=== PATIENT | female | born 1950 | race Caucasian/White ===

== ENCOUNTER → 2017-01-17 | Outpatient (CLI) | payer MEDICARE ==
--- NOTE | 2017-01-17 10:59 | MM ---
Reason for exam: follow-up at short interval from prior study. Last mammogram was performed 7 months ago. History: Patient is postmenopausal. Family history of breast cancer in maternal grandmother at age 94. Reductions of both breasts, 2010. Excisional biopsy of the left breast. Physical Findings: Nurse did not find any significant physical abnormalities on exam. MG 3D Diag Mammo W/Cad LT CC and MLO view(s) were taken of the left breast. Prior study comparison: June 28, 2016, left breast MG 3d work up w/cad LT. June 26, 2016, bilateral MG 3d screening mammo w/cad. There are scattered fibroglandular densities. There is chronic nodularity in the left breast. No significant new findings when compared with previous films. These results were verbally communicated with the patient and result sheet given to the patient on 01/17/17. ASSESSMENT: Benign, BI-RAD 2 RECOMMENDATION: Routine screening mammogram of both breasts in 6 months. Back on schedule.
== END | disposition home or self-care (01) ==
LOC: RADMAMWWP 10:12
PROVIDERS: ATTEND Family Medicine
DX: R92.8 Other abnormal and inconclusive findings on diagnostic imaging of breast (principal)
CPT/HCPCS: G0206; G0279

== ENCOUNTER → 2017-05-07 | Outpatient (CLI) | payer MEDICARE ==
--- NOTE | 2017-05-07 11:16 | P.PN ---
Progress Note - Text Progress Note Date: 05/07/17 Chief complaint: pain and vaginal dryness with intercourse. HPI: this is a 67-year-old G3 PIII with LMP of 2003. She states she is infrequently sexually active. She had sexual intercourse once during the past year and when she did have intercourse it was very painful secondary to a vaginal dryness. She did use a lubricant but states it felt like the vagina was going to tear with sexual intercourse. She does have a history of lichen sclerosis of the vulva. She states she has not really been using the prescribed cream because it can sting the area. She states the problem is not really been with the vulva, but with the vagina during intercourse. ROS: she denies respiratory, cardiac, or G.I. problems. She denies fever or bleeding from the vagina. Physical exam: vital signs: blood pressure 163/95, height 5'4", weight 146 pounds, BMI 25, intention 97.6, pulse 59. The patient is alert and oriented times 3 in no acute distress. Abdomen: soft nontender without palpable masses. Pelvic exam: external genitalia reveals generalized vulvar pallor consistent with lichen sclerosis. This was confirmed with vulvar biopsy last year. There are no focal lesions. The cevix and vagina reveal moderate atrophy without lesions. There is no unusual discharge. No tears are noted. There is no evidence of prolapse. Bimanual exam: uterus is atrophic nongravid size and nontender. Uterus is mid positioned. There are no palpable adnexal masses or tenderness. Impression: 1. 67-year-old menopausal female with dyspareunia secondary to vaginal atrophy. 2. Lichen sclerosis of the Vulva. Plan: 1. Trial of Estrace vaginal cream, 1 g intravaginal he 2 times weekly. During the 1st 2 weeks she will use it up to every other day. 2. She was instructed, she has problems such as vaginal bleeding. 3. She will return in approximately 2 months for her annual examination and mammogram. Total time spent with the patient 15 minutes.
== END ==
LOC: WWCWWP 09:55
PROVIDERS: ATTEND Obstetrics & Gynecology
DX: N94.19 Other specified dyspareunia (principal); N95.2 Postmenopausal atrophic vaginitis; N90.4 Leukoplakia of vulva

== ENCOUNTER → 2017-07-08 | Outpatient (CLI) | payer MEDICARE ==
--- NOTE | 2017-07-08 21:39 | WWHP ---
[facility] - HISTORY AND PHYSICAL CHIEF COMPLAINT: The patient is here for her routine gynecologic exam and mammogram. HISTORY OF PRESENT ILLNESS: This is a 67-year-old G3, P3 with an LMP of 2003. The patient has a history of lichen sclerosus. She was also started on Estrace vaginal cream for vaginal dryness and dyspareunia with intercourse. She states the itching and irritation at the vulva and just inside of the vulvar area has gotten much worse recently. She states the estrogen vaginal cream was also irritating the outside, so she has discontinued this about a week ago. She denies any postmenopausal bleeding. She states she still has been experiencing vaginal dryness with intercourse, even after starting the estrogen vaginal cream. PAST MEDICAL HISTORY: Chronic hypertension, arthritis, chronic back problems, history of peptic ulcer disease and history of vocal cord granuloma. MEDICATIONS: 1. Synthroid 100 mcg daily. 2. Meloxicam 15 mg daily. 3. Irbesartan 300 mg daily. 4. Badin t.i.d. p.r.n. MMODL / MALINDAN: [id number] /
--- NOTE | 2017-07-08 21:39 | WWHP ---
[facility] - HISTORY AND PHYSICAL CHIEF COMPLAINT: The patient is here for her routine gynecologic exam and mammogram. HISTORY OF PRESENT ILLNESS: This is a 67-year-old G3, P3 with an LMP of 2003. The patient has a history of lichen sclerosus. She states the vulvar pruritus has gotten much worse over the last couple of weeks and has been severe. She had been using estrogen vaginal cream for vaginal dryness and dyspareunia. She states the estrogen cream was irritating the vulva, so she discontinued this 1 week ago. She denies postmenopausal bleeding. PAST MEDICAL HISTORY: Chronic hypertension, arthritis, chronic back problems, history of peptic ulcer disease and history of vocal cord granuloma. MEDICATIONS: 1. Synthroid 100 mcg daily. 2. Meloxicam 15 mg daily. 3. Irbesartan 300 mg daily. 4. [place] t.i.d. p.r.n. 5. Omeprazole 40 mg daily. 6. Zyrtec 10 mg daily. 7. Trazodone 50 mg at bedtime p.r.n. for insomnia. 8. Calcium 500 mg daily. 9. Vitamin D 1000 units daily. ALLERGIES: To PENICILLIN, SULFA, and KEFLEX. PAST SURGICAL HISTORY: Unchanged from the 2014 H and P. PAST BUYER HISTORY: She has been menopausal since 2003 and has no history of STDs. She does have a history of lichen sclerosus documented with vulvar biopsy. SOCIAL HISTORY: She denies tobacco and drug use and has about 2 alcohol-containing drinks per month. She has been since 1970 and is retired. She does winter in [place]. FAMILY HISTORY: Unchanged from the 2013 H and P. REVIEW OF SYSTEMS: She has lost about 30 pounds with [employer]. She denies respiratory, cardiac or GI problems. She denies maltreatment or falling. : She occasionally has some urinary frequency, but denies any significant problems with urinary leakage. PHYSICAL EXAM: Blood pressure 142/91, height 5 feet 4 inches, weight 146 pounds, BMI 25. Temperature 97.6, pulse 70. This is a well-developed, well-nourished white female who is alert and oriented x3, in no acute distress. HEENT: Within normal limits. NECK: Supple without mass or thyromegaly. CHEST AND LUNGS: Clear to auscultation. HEART: Regular rate and rhythm. Breasts are without mass or discharge. Axillary is negative for adenopathy. BACK: Negative for CVA tenderness. ABDOMEN: Soft, nontender, without palpable masses. PELVIC: External genitalia reveals moderate erythema around the vulva, perineum and perianal areas. There is also pallor consistent with lichen sclerosus. There are no focal lesions. There is no excoriation of the vulva. Vagina reveals moderate atrophy. Cervix appears normal. There is no unusual discharge. There is no evidence of prolapse. The uterus is mid position, nongravid size, nontender. There are no palpable adnexal masses or tenderness. Rectovaginal is negative for mass or tenderness and is negative for occult blood. EXTREMITIES: Nontender. IMPRESSION: 1. A 67-year-old menopausal female with worsening of lichen sclerosus. 2. Moderate genital atrophy with resulting dyspareunia. PLAN: 1. Pap smear was performed. 2. Self-breast examination was discussed. 3. Mammogram will be done today. 4. Temovate 0.05% ointment b.i.d. x2 weeks. She will then change to Kenalog 0.1% cream b.i.d. p.r.n. She will be heading to [place] within the next few days and she will be there for 4 months. She will follow up with a three dimensional art instructor down there if her symptoms are not improving. 5. Osteoporosis prevention was discussed. I have recommended bone density screening and a slip was given to the patient for this. 6. She did get her flu shot this fall. 7. Screening colonoscopy was recommended and she states she will talk to Dr. Archibald about this and arrange it through him. 8. She will return in 1 year and p.r.n. MMODL / IJN: [id number] /
--- NOTE | 2017-07-10 13:57 | MM ---
Reason for exam: screening (asymptomatic). Last mammogram was performed 6 months ago. History: Patient is postmenopausal. Family history of breast cancer in maternal grandmother at age 94. Reductions of both breasts, 2010. Excisional biopsy of the left breast. Physical Findings: A clinical breast exam by your physician is recommended on an annual basis and results should be correlated with mammographic findings. MG 3D Screening Mammo W/Cad Bilateral CC and MLO view(s) were taken. Prior study comparison: January 17, 2017, left breast MG 3d diag mammo w/cad LT. June 28, 2016, left breast MG 3d work up w/cad LT. June 26, 2016, bilateral MG 3d screening mammo w/cad. There are scattered fibroglandular densities. No suspicious abnormality. No significant changes when compared with prior studies. ASSESSMENT: Negative, BI-RAD 1 RECOMMENDATION: Routine screening mammogram of both breasts in 1 year.
== END | disposition home or self-care (01) ==
LOC: WWCWWP 11:16
PROVIDERS: ATTEND Obstetrics & Gynecology
DX: Z12.31 Encounter for screening mammogram for malignant neoplasm of breast (principal)
CPT/HCPCS: 77063; G0202

== ENCOUNTER → 2017-12-22 | Outpatient (CLI) | payer MEDICARE ==
--- NOTE | 2017-12-22 15:11 | CT ---
EXAMINATION TYPE: CT lumbar spine wo con DATE OF EXAM: 12/22/2017 2:39 PM COMPARISON: Lumbar spine x-ray October 23, 2011 HISTORY: Lower back pain. Sx x6 years ago CT DLP: 625.5 mGycm Automated exposure control for dose reduction was used. Unenhanced CT of the lumbar spine was performed. Bone and soft tissue window settings are submitted as well as coronal and sagittal reconstructions. There are 5 lumbar-type vertebra redemonstrated. There is levoconvex scoliosis centered at L2 level t hat remains present. No significant interval progression is seen. There are long segment posterior in terpedicular rods and screws from T11 through S1 level bilaterally. Artificial disc material L2-L3, L 4-L5, and L5-S1 levels is present. Osseous structures are demineralized. There is grade 1 anterolisth esis of L5 on S1 measured 6 mm on sagittal images. There is moderate disc space narrowing L3-L4 level . There is moderate anterior and lateral spurring in the visualized lower thoracic spine. Spinal manpreet l is grossly preserved. Artifact from metallic hardware is present. Review of axial images shows multilevel moderate to advanced facet degenerative changes bilaterally a rtifact from metallic hardware limits evaluation particularly in the lower lumbar spine. Some diverticula in the proximal sigmoid colon are present. There is suspected calcified diverticulum distal esophagus axial image 10. Cholecystectomy clips are noted. IMPRESSION: Suboptimal due to streak artifact from long segment metallic fusion hardware. Stable scol iosis. Spondylolisthesis lumbosacral junction is noted. Other findings as noted above.
== END ==
LOC: RADCTMAIN 14:16
PROVIDERS: ATTEND Psychiatry & Neurology Neurology
DX: M41.9 Scoliosis, unspecified (principal); M43.17 Spondylolisthesis, lumbosacral region; M48.061 Spinal stenosis, lumbar region without neurogenic claudication
CPT/HCPCS: 72131

== ENCOUNTER → 2019-03-18 | Outpatient (CLI) | payer MEDICARE ==
--- NOTE | 2019-03-19 07:40 | BD ---
EXAMINATION TYPE: Axial Bone Density DATE OF EXAM: 03/18/2019 COMPARISON: NONE CLINICAL HISTORY: 69 YR OLD FEMALE....ICD-10 CODE: N95.1 POST MENOPAUSAL Height: 62.4 Weight: 177 FRAX RISK QUESTIONS: NOTHING ADDITIONAL TO ADD HERE RISK FACTORS HISTORY OF: Surgery to Spine..TO SPINE WITH MICHAEL AND SCREWS, SURG TO BOTH WRISTS, Postmenopausal woman: YES, LATE 40s Lost more than 2 inches in height since high school: YES MEDICATIONS: Prednisone or other steroids: YES, IN THE LAST MONTH ONLY Thyroid Medications: YES, SYNTHROID FOR ABOUT 5 YRS Additional Medications: BP MEDS, REFLUX MEDS, VIT D, CALCIUM IN VITAMIN, PAIN MEDS AND NSAIDS Additional History: HYPERTENSION, REFLUX, OSTEOARTHRITIS, BILAT TKRs, BILAT WRIST SURG, BACK SURGERY, SCOLIOSIS EXAM MEASUREMENTS: Bone mineral densitometry was performed using the [employer] System. Bone mineral density as measured about the Lumbar spine is: BACK NOT SCANNED, SURGICAL, WITH MICHAEL AND SCREWS Bone mineral density about the R hip (g/cm2): 0.787 Bone mineral density about the L hip (g/cm2): 0.868 T Score values are as follows: -----R Neck: -2.0 -----L Neck: -1.9 -----R Total: -1.7 -----L Total: -1.1 Bone mineral density FIRST BONE DENSITY STUDY AT [facility] CANNOT USE WRISTS, BILAT SURGICAL REPAIR FRAX%s: THERE IS A 17.2% CHANCE FOR A MAJOR OSTEOPOROTIC FX AND A 3.3% FOR HIP....PROBABILITY FOR FX IN 10 YRS TIME IMPRESSION: Osteopenia (T Score between -2.5 and -1). There is slightly increased risk of fracture and the patient may be considered for treatment. Re-Screen 2-5 years. NOTE: T-SCORE=SD OF THE YOUNG ADULT MEAN.
--- NOTE | 2019-03-22 08:12 | MM ---
Reason for exam: screening (asymptomatic). Last mammogram was performed 1 year and 8 months ago. History: Patient is postmenopausal. Family history of breast cancer in maternal grandmother at age 94. Reductions of both breasts, 2010. Excisional biopsy of the left breast. Physical Findings: A clinical breast exam by your physician is recommended on an annual basis and results should be correlated with mammographic findings. MG 3D Screening Mammo W/Cad Bilateral CC and MLO view(s) were taken. Prior study comparison: July 08, 2017, bilateral MG 3d screening mammo w/cad. January 17, 2017, left breast MG 3d diag mammo w/cad LT. June 28, 2016, left breast MG 3d work up w/cad LT. June 26, 2016, bilateral MG 3d screening mammo w/cad. There are scattered fibroglandular densities. Possible increasingly ectatic ducts 12 o'clock right breast. ASSESSMENT: Incomplete: need additional imaging evaluation, BI-RAD 0 RECOMMENDATION: Ultrasound of the right breast. [facility] will attempt to contact patient to return for ultrasound.
== END | disposition home or self-care (01) ==
LOC: RADMAMWWP 13:53
PROVIDERS: ATTEND Obstetrics & Gynecology
DX: Z12.31 Encounter for screening mammogram for malignant neoplasm of breast (principal); M85.80 Other specified disorders of bone density and structure, unspecified site; N95.1 Menopausal and female climacteric states
CPT/HCPCS: 77063; 77067; 77080

== ENCOUNTER → 2019-04-01 | Outpatient (CLI) | payer MEDICARE ==
--- NOTE | 2019-04-01 11:30 | USB ---
Reason for exam: additional evaluation requested from abnormal screening. History: Patient is postmenopausal. Family history of breast cancer in maternal grandmother at age 94. Reductions of both breasts, 2010. Excisional biopsy of the left breast. Physical Findings: Nurse Summary: all soft, nodular, movable, prominent tissue, bilateral nipples (nurse ts). US Breast Workup Limited RT Right limited breast ultrasound including focal area of concern, retroareolar and axilla demonstrates a 0.3 x 0.2 x 0.2cm calcification at 2 o'clock and duct ectasia at the nipple. These results were verbally communicated with the patient and result sheet given to the patient on 04/01/19. ASSESSMENT: Incomplete: need additional imaging evaluation, BI-RAD 0 RECOMMENDATION: Special view mammogram of the right breast.
--- NOTE | 2019-04-01 11:32 | MM ---
Reason for exam: additional evaluation requested from abnormal screening. Last mammogram was performed less than 1 month ago. History: Patient is postmenopausal. Family history of breast cancer in maternal grandmother at age 94. Reductions of both breasts, 2010. Excisional biopsy of the left breast. MG 3D Work Up W/Cad RT Spot compression CC, spot compression MLO, and ML view(s) were taken of the right breast. Prior study comparison: March 18, 2019, bilateral MG 3d screening mammo w/cad. July 08, 2017, bilateral MG 3d screening mammo w/cad. There are scattered fibroglandular densities. There is no discrete abnormality including area of concern. These results were verbally communicated with the patient and result sheet given to the patient on 04/01/19. ASSESSMENT: Negative, BI-RAD 1 RECOMMENDATION: Return to routine screening mammogram schedule for both breasts.
== END | disposition home or self-care (01) ==
LOC: RADUSWWP 10:15
PROVIDERS: ATTEND Obstetrics & Gynecology
DX: R92.8 Other abnormal and inconclusive findings on diagnostic imaging of breast (principal)
CPT/HCPCS: 77065; 76642; G0279; 77061

== ENCOUNTER → 2020-05-18 | Outpatient (CLI) | payer MEDICARE ==
[2020-05-18 14:39] LABS: Ionized Calcium 5.5 mg/dL (4.5-5.3)
[2020-05-18 20:27] LABS: C Reactive Protein 2.3 mg/dL (0.0-0.8)
== END | disposition home or self-care (01) ==
LOC: LABWHC1 13:43
PROVIDERS: ATTEND Otolaryngology
DX: D86.9 Sarcoidosis, unspecified (principal); R05 Cough; R53.83 Other fatigue
CPT/HCPCS: 36415; 82164; 82306; 82310; 82330; 86140

== ENCOUNTER → 2020-05-25 | Outpatient (CLI) | payer MEDICARE ==
--- NOTE | 2020-05-25 11:59 | CT ---
EXAMINATION TYPE: CT sinus wo con DATE OF EXAM: 05/25/2020 COMPARISON: NONE HISTORY: Chronic sinusitis per order. CT DLP: 550.8 mGycm. Automated Exposure Control for Dose Reduction was Utilized. TECHNIQUE: CT scan of the sinuses is performed without contrast, axial images are obtained, coronal r eformatted images are also reviewed. FINDINGS: The paranasal sinuses including the frontal, ethmoid, sphenoid, and maxillary sinuses bila terally are well-aerated without abnormal opacification. No suspicious air-fluid levels. The ostiome atal complex is patent bilaterally on coronal image 24. Visualized portion of mastoid air cells show no abnormal opacification. The globes are intact bilate rally. Visualized portion of brain parenchyma is unremarkable. IMPRESSION: The sinuses are clear and the ostiomeatal complex is patent bilaterally.
--- NOTE | 2020-05-25 12:01 | XR ---
EXAMINATION TYPE: XR chest 2V DATE OF EXAM: 05/25/2020 COMPARISON: Chest CT January 05, 2016. Chest x-ray 2011 HISTORY: Nasal drainage. Chronic sinusitis. Pain. TECHNIQUE: Frontal and lateral views of the chest are obtained. FINDINGS: Underlying scoliosis redemonstrated. Partial visualization of long segment Lei rods in the lower thoracic and upper lumbar spine. New spinal stimulator device in the mid thoracic spina l canal posteriorly. Osseous structures are demineralized. Cardiac silhouette size stable and within normal limits. Chronic emphysematous and pulmonary fibrotic changes without new suspicious focal airspace opacity, pleural effusion, or pneumothorax seen bilate rally. IMPRESSION: Chronic changes without acute pulmonary process.
== END | disposition home or self-care (01) ==
LOC: RADCTMAIN 11:31
PROVIDERS: ATTEND Otolaryngology
DX: J43.9 Emphysema, unspecified (principal); J32.0 Chronic maxillary sinusitis
CPT/HCPCS: 70486; 71046

== ENCOUNTER → 2020-06-07 | Outpatient (CLI) | payer MEDICARE | END | disposition home or self-care (01) | LOC: LABWHC1 13:59 | PROVIDERS: ATTEND Otolaryngology | DX: E83.52 Hypercalcemia (principal) | CPT/HCPCS: 36415; 82330; 83970 ==

== ENCOUNTER → 2020-07-10 | Outpatient (CLI) | payer MEDICARE ==
--- NOTE | 2020-07-10 18:20 | NM ---
EXAMINATION TYPE: NM parathyroid w/spect DATE OF EXAM: 07/10/2020 COMPARISON: CT neck and chest January 05, 2016 HISTORY: History of parathyroid adenoma with hypercalcemia TECHNIQUE: Following administration of 24.4 mCi Tc99m Sestamibi. Anterior projection images of the neck and ches t were obtained 10 minutes and 3 hours post injection. SPECT images of the neck and chest were obtai camilla and reconstructed in three axes. FINDINGS: Thyroid tracer washout: Delayed images demonstrate near-complete tracer washout from the thyroid. Parathyroid uptake: None. The 3 hour delayed images demonstrate any subtle focal abnormal persistent uptake in the region of the lower pole left thyroid lobe may suggest recurrent parathyroid adenoma. Normal uptake: There is physiological tracer uptake in the visualized portion of myocardium, salivary glands, and thyroid gland with increased radiotracer uptake left thyroid lobe midpole level, no anahi esponding nodule identified.. IMPRESSION: Subtle retained radiotracer lower pole level left thyroid lobe worrisome for recurrent fo ana laura parathyroid adenoma.
== END | disposition home or self-care (01) ==
LOC: RADNMMAIN 11:16
PROVIDERS: ATTEND Otolaryngology
DX: R93.89 Abnormal findings on diagnostic imaging of other specified body structures (principal); D35.1 Benign neoplasm of parathyroid gland
CPT/HCPCS: 78071; A9500

== ENCOUNTER 2020-12-20 20:25 | Emergency (ER) | payer MEDICARE ==
[2020-12-20 20:29] VITALS: BP 193/104; PULSE 107; RESP 18; TEMP 97.6
[2020-12-20] MEDS ORDERED: LIDOCAINE 1% INJ 10MG/ML (20 ML MDV) SQ ONE (20:35)
[2020-12-20] MEDS ORDERED: DIPH,PERTUS(ACELL)TETVAC-LF 0.5 ML VIAL IM ONE (20:35)
--- NOTE | 2020-12-20 21:12 | ED ---
Wound/Laceration HPI - General Chief Complaint: Wound/Laceration Stated Complaint: toe injury Time Seen by Provider: 12/20/20 20:31 Source: patient, RN notes reviewed Mode of arrival: wheelchair Limitations: no limitations - History of Present Illness Initial Comments: Patient is a 70-year-old female that presents to the emergency room with a left pinky toe laceration/skin tear. She notes that she was walking in the [employer] school when she opened the door and hit her pinky toe. She noted that her toe started bleeding. She notes that she does have a history of issues with this pinky toe. She noted that it was not in any pain or discomfort just wanted to get it looked at. She did not know she was up-to-date on her tetanus vaccination. She denied any other complaints or issues at this time. She denied any chest pain first breath headache nausea vomiting diarrhea constipation fever fatigue chills weakness numbness tingling decreased range of motion in her left pinky toe. - Related Data Home Medications Medication Instructions Recorded Confirmed HYDROcodone/APAP 10-325MG [Sylvester 1 each PO BID PRN 01/25/14 01/31/14 10] Lansoprazole [Prevacid] 15 mg PO DAILY 01/25/14 01/31/14 Magnesium Oxide [Mag-Ox] 800 mg PO DAILY 01/25/14 01/31/14 Meloxicam 15 mg PO DAILY 01/25/14 01/31/14 Zolpidem Tartrate [Ambien Cr] 12.5 mg PO HS 01/25/14 01/31/14 amLODIPine BESYLATE/BENAZEPRIL 5 - 20 mg PO DAILY 01/25/14 01/31/14 [Lotrel 5-20 mg Capsule] Previous Rx's Medication Instructions Recorded HYDROcodone/APAP 10-325MG [Sylvester 1 - 2 each PO Q6H PRN #60 tab 02/03/14 10-325] Warfarin [Coumadin] 2.5 mg PO DAILY #1 tab 02/03/14 Allergies Allergy/AdvReac Type Severity Reaction Status Date / Time cephalexin monohydrate Allergy Unknown Verified 12/20/20 20:29 [From Keflex] Childhood Penicillins Allergy Rash/Hives Verified 12/20/20 20:29 Sulfa (Sulfonamide Allergy Unknown Verified 12/20/20 20:29 Antibiotics) Childhood Review of Systems ROS Statement: Those systems with pertinent positive or pertinent negative responses have been documented in the HPI. ROS Other: All systems not noted in ROS Statement are negative. Past Medical History Past Medical History: GERD/Reflux, Hypertension, Osteoarthritis (OA) Additional Past Medical History / Comment(s): Degenerative disc disease History of Any Multi-Drug Resistant Organisms: None Reported Past Surgical History: Adenoidectomy, Appendectomy, Back Surgery, Breast Surgery, Cholecystectomy, Joint Replacement, Orthopedic Surgery, Tonsillectomy Additional Past Surgical History / Comment(s): ARTHROSCOPIC KNEE/TOTAL LEFT KNEE, TOTAL RIGHT KNEE Past Anesthesia/Blood Transfusion Reactions: No Reported Reaction Past Psychological History: No Psychological Hx Reported Smoking Status: Former smoker Past Alcohol Use History: None Reported Past Drug Use History: None Reported General Exam Limitations: no limitations General appearance: alert, in no apparent distress Head exam: Present: atraumatic, normocephalic, normal inspection Eye exam: Present: normal appearance, PERRL, EOMI. Absent: scleral icterus, conjunctival injection, periorbital swelling Neck exam: Present: normal inspection Respiratory exam: Present: normal lung sounds bilaterally. Absent: respiratory distress, wheezes, rales, rhonchi, stridor Cardiovascular Exam: Present: regular rate, normal rhythm, normal heart sounds. Absent: systolic murmur, diastolic murmur, rubs, gallop, clicks Left Foot/Toe exam: Present: full ROM, laceration (To the medial aspect of the left pinky toe). Absent: tenderness, swelling, ecchymosis, deformity, crepitus, dislocation, erythema, foreign body Neurological exam: Present: alert, oriented X3, CN II-XII intact Psychiatric exam: Present: normal affect, normal mood Skin exam: Present: warm, dry, intact, normal color. Absent: rash Course Vital Signs 12/20/20 20:26 Temperature 97.6 F Pulse Rate 107 H Respiratory 18 Rate Blood Pressure 193/104 O2 Sat by Pulse 97 Oximetry Procedures - Laceration Laceration #1 Consent Obtained: verbal consent Indication: laceration Site: foot (Left pinky toe medial aspect) Size (cm): 2 Description: flap Depth: simple, single layer Anesthetic Used: lidocaine 1% Anesthesia Technique: nerve block Amount (mls): 4 Pre-repair: irrigated extensively Type of Sutures: nylon Size of Sutures: 5-0 Number of Sutures: 3 Technique: simple, interrupted Patient Tolerated Procedure: well, no complications Medical Decision Making - Medical Decision Making 70-year-old female with left pinky toe laceration from [facility] Tetanus vaccination, he can ordered. Case discussed with Dr. Lazo, patient can discharge home with follow-up to primary care. Disposition Clinical Impression: Laceration Disposition: HOME SELF-CARE Condition: Stable Instructions (If sedation given, give patient instructions): Care For Your Stitches (ED), Laceration (ED) Additional Instructions: Please return to the Emergency Department if symptoms worsen or any other concerns. Follow-up with primary care as needed. Please return in 10 days to have sutures removed. Can wash with warm water gentle soap, keep clean and dry as possible. Please return if any signs or symptoms of infection occur such as erythema, pus, warmth to the little toe. Is patient prescribed a controlled substance at d/c from ED?: No Referrals: Gregory Huerta MD [Primary Care Provider] - 1-2 days Time of Disposition: 21:12
== END 2020-12-20 21:33 | disposition home or self-care (01) ==
LOC: EC 20:25
DX: S91.115A Laceration without foreign body of left lesser toe(s) without damage to nail, initial encounter (principal); I10 Essential (primary) hypertension; K21.9 Gastro-esophageal reflux disease without esophagitis; M19.90 Unspecified osteoarthritis, unspecified site; Z90.89 Acquired absence of other organs; Z90.09 Acquired absence of other part of head and neck; W22.09XA Striking against other stationary object, initial encounter; Z87.891 Personal history of nicotine dependence; Z23 Encounter for immunization
CPT/HCPCS: 90715; 12001; 99282; 96372; 90471; J2001

== ENCOUNTER → 2020-12-22 | Outpatient (CLI) | payer MEDICARE ==
--- NOTE | 2020-12-22 20:19 | BD ---
EXAMINATION TYPE: Axial Bone Density DATE OF EXAM: 12/22/2020 COMPARISON: 03.18.2019 CLINICAL HISTORY: 70 YR OLD FEMALE.....ICD-10 CODE: D35.1 BENIGN NEOPLASM OF PARATHYROID Height: 62.4 Weight: 189 FRAX RISK QUESTIONS: History of Fracture in Adulthood: YES RISK FACTORS HISTORY OF: History of Wrist SURG TO BOTH WRISTS Surgery to Spine YES, WITH RODS AND SCREWS WELL BOTH WRISTS Postmenopausal woman: YES, IN HER LATE 40s Lost more than 2 inches in height since high school: YES Hyperparathyroidism: YES Adrenal Insufficiency: NO MEDICATIONS: Prednisone or other steroids: NOT REGULARLY, Thyroid Medications: YES, SYNTHROID, FOR ABOUT 10 YRS Additional Medications: BP MEDS, METFORMIN, REFLUX, VIT D, MULTIVITAMIN Additional History: NEOPLASM TO PARATHYROID GLAND, HYPERTENSION, DIABETES, REFLUX EXAM MEASUREMENTS: Bone mineral densitometry was performed using the Behalf System. DID NOT SCAN SPINE, SURGICAL REPAIR WITH HARDWARE Bone mineral density about the R hip (g/cm2): 0.782 Bone mineral density about the L hip (g/cm2): 0.872 T Score values are as follows: -----R Neck: -2.2 -----L Neck: -2.2 -----R Total: -1.8 -----L Total: -1.1 Bone mineral density has: Decreased -0.1% since study of: 03.18.2019 FRAX%s: THERE IS A 18.8% CHANCE FOR A MAJOR OSTEOPOROTIC FX AND A 3.8% FOR HIP......PROBABILITY FO R FX IN 10 YRS TIME IMPRESSION: Osteopenia (T Score between -2.5 and -1). There is slightly increased risk of fracture and the patient may be considered for treatment. Re-Screen 2-5 years. NOTE: T-SCORE=SD OF THE YOUNG ADULT MEAN.
== END | disposition home or self-care (01) ==
LOC: RADBDWWP 09:12
PROVIDERS: ATTEND Otolaryngology
DX: M85.89 Other specified disorders of bone density and structure, multiple sites (principal)
CPT/HCPCS: 77080

== ENCOUNTER 2021-01-07 10:44 | Emergency (ER) | payer MEDICARE ==
[2021-01-07 10:53] VITALS: RESP 18
[2021-01-07 11:57] LABS: Basophils % (A) 0 %; Eosinophils # (A) 0.1 k/uL (0-0.7); Eosinophils % (A) 1 %; HCT 42.7 % (34.0-46.0); HGB 13.9 gm/dL (11.4-16.0); Lymphocytes # (A) 1.2 k/uL (1.0-4.8); Lymphocytes % (A) 12 %; MCH 29.7 pg (25.0-35.0); MCHC 32.6 g/dL (31.0-37.0); MCV 91.3 fL (80.0-100.0); Mean Platelet Volume 6.6; Monocytes # (A) 0.4 k/uL (0-1.0); Monocytes % (A) 4 %; Neutrophils # (A) 8.5 k/uL (1.3-7.7); Neutrophils % (A) 82 %; Platelet Count 242 k/uL (150-450); RBC 4.68 m/uL (3.80-5.40); RDW 13.7 % (11.5-15.5); WBC 10.3 k/uL (3.8-10.6)
--- NOTE | 2021-01-07 12:20 | ED ---
General Adult HPI - General Chief complaint: Back Pain/Injury Stated complaint: Back pain Time Seen by Provider: 01/07/21 10:54 Source: patient Mode of arrival: ambulatory Limitations: no limitations - History of Present Illness Initial comments: Patient is a 70-year-old female with history of hypertension, degenerative disc disease, presenting to the emergency Department with complaints of upper back discomfort for the past week. She denies any injuries or trauma to the area. She describing it as right sided chest discomfort with some mild radiation to the right shoulder blade. She states it hurts worse when she lays down in the evening. She states the pain can last for a few hours, she is a hard time falling asleep last night. She states that the pain is better throughout the day when she is upright and moving around. She does have history of chronic low back pain with rods in her lower back, she states this feels different than her regular back pains. She already takes Snyder's, she tried ibuprofen once. She denies any fevers or chills, no left-sided chest pain, no shortness of breath, no heartburn, no nausea or vomiting. She denies any abdominal pain. She denies any history of heart disease, she does have history of hypertension. She is a nonsmoker, does not drink alcohol. She has no further complaints at this time. Upon arrival to the ER, she is slightly hypertensive at 181/95, rest of vitals normal. - Related Data Home Medications Medication Instructions Recorded Confirmed HYDROcodone/APAP 10-325MG [[place] 1 each PO BID PRN 01/25/14 01/31/14 10] Lansoprazole [Prevacid] 15 mg PO DAILY 01/25/14 01/31/14 Magnesium Oxide [Mag-Ox] 800 mg PO DAILY 01/25/14 01/31/14 Meloxicam 15 mg PO DAILY 01/25/14 01/31/14 Zolpidem Tartrate [Ambien Cr] 12.5 mg PO HS 01/25/14 01/31/14 amLODIPine BESYLATE/BENAZEPRIL 5 - 20 mg PO DAILY 01/25/14 01/31/14 [Lotrel 5-20 mg Capsule] Previous Rx's Medication Instructions Recorded HYDROcodone/APAP 10-325MG [[place] 1 - 2 each PO Q6H PRN #60 tab 02/03/14 10-325] Warfarin [Coumadin] 2.5 mg PO DAILY #1 tab 02/03/14 Allergies Allergy/AdvReac Type Severity Reaction Status Date / Time cephalexin monohydrate Allergy Unknown Verified 01/07/21 10:53 [From Keflex] Childhood Penicillins Allergy Rash/Hives Verified 01/07/21 10:53 Sulfa (Sulfonamide Allergy Unknown Verified 01/07/21 10:53 Antibiotics) Childhood Review of Systems ROS Statement: Those systems with pertinent positive or pertinent negative responses have been documented in the HPI. ROS Other: All systems not noted in ROS Statement are negative. Past Medical History Past Medical History: GERD/Reflux, Hypertension, Osteoarthritis (OA) Additional Past Medical History / Comment(s): Degenerative disc disease History of Any Multi-Drug Resistant Organisms: None Reported Past Surgical History: Adenoidectomy, Appendectomy, Back Surgery, Breast Surgery, Cholecystectomy, Joint Replacement, Orthopedic Surgery, Tonsillectomy Additional Past Surgical History / Comment(s): ARTHROSCOPIC KNEE/TOTAL LEFT KNEE, TOTAL RIGHT KNEE Past Anesthesia/Blood Transfusion Reactions: No Reported Reaction Past Psychological History: No Psychological Hx Reported Smoking Status: Former smoker Past Alcohol Use History: None Reported Past Drug Use History: None Reported General Exam - General Exam Comments Initial Comments: GENERAL: Patient is well-developed and well-nourished. Patient is nontoxic and in no acute distress. HEAD: Atraumatic, normocephalic. EYES: Pupils equal round and reactive to light, extraocular movements intact, sclera anicteric, conjunctiva are normal. Eyelids were unremarkable. ENT: TMs normal, nares patent, oropharynx clear without exudates. Moist mucous membranes. NECK: Normal range of motion, supple without lymphadenopathy or JVD. LUNGS: Unlabored respirations. Breath sounds clear to auscultation bilaterally and equal. No wheezes rales or rhonchi. HEART: Regular rate and rhythm without murmurs, rubs or gallops. ABDOMEN: Soft, nontender, normoactive bowel sounds. No guarding, no rebound. No masses appreciated. : Deferred MUSCULOSKELETAL: Normal extremities with adequate strength and normal range of motion, no pitting or edema. No clubbing or cyanosis. NEUROLOGICAL: Patient is alert and oriented x 3. Motor and sensory are also intact. Cranial nerves II through XII grossly intact. Symmetrical smile. Normal speech, normal gait. PSYCH: Normal mood, normal affect. SKIN: Warm, Dry, normal turgor, no rashes or lesions noted. Limitations: no limitations Course Vital Signs 01/07/21 10:50 Temperature 98.6 F Pulse Rate 85 Respiratory 18 Rate Blood Pressure 181/95 O2 Sat by Pulse 99 Oximetry EKG Findings - EKG Comments: EKG Findings:: Sinus rhythm with occasional PVCs, nonspecific T-wave abnormalities, no signs of acute ischemic process. Ventricular rate 77, MT interval 196, QT 378. No previous to compare. Medical Decision Making - Medical Decision Making Patient is a 70-year-old female here with right-sided upper back discomfort as well as some right-sided chest discomfort times one week. No falls or trauma. EKG and chest x-ray are clear, thoracic so she decided just disease. Lab work is also normal, troponin is normal. I do not feel like this is cardiac related. I discussed with patient that I feel like this is more muscle skeletal in nature. I did recommend anti-inflammatory such as ibuprofen or Aleve over the next few days. I also recommended following up with her primary care physician. She is in agreement with this plan of care. She is resting completely here in the ER. Return parameters were discussed with her and she verbalized understanding. Case discussed with Dr. Jackson. - Lab Data Result diagrams: 01/07/21 11:49 01/07/21 11:49 Lab Results 01/07/21 01/07/21 01/07/21 Range/Units 11:49 11:49 11:49 WBC 10.3 (3.8-10.6) k/uL RBC 4.68 (3.80-5.40) m/uL Hgb 13.9 (11.4-16.0) gm/dL Hct 42.7 (34.0-46.0) % MCV 91.3 (80.0-100.0) fL MCH 29.7 (25.0-35.0) pg MCHC 32.6 (31.0-37.0) g/dL RDW 13.7 (11.5-15.5) % Plt Count 242 (150-450) k/uL MPV 6.6 Neutrophils % 82 % Lymphocytes % 12 % Monocytes % 4 % Eosinophils % 1 % Basophils % 0 % Neutrophils # 8.5 H (1.3-7.7) k/uL Lymphocytes # 1.2 (1.0-4.8) k/uL Monocytes # 0.4 (0-1.0) k/uL Eosinophils # 0.1 (0-0.7) k/uL Basophils # 0.0 (0-0.2) k/uL Sodium 137 (137-145) mmol/L Potassium 4.3 (3.5-5.1) mmol/L Chloride 105 (98-107) mmol/L Carbon Dioxide 25 (22-30) mmol/L Anion Gap 7 mmol/L BUN 18 H (7-17) mg/dL Creatinine 0.50 L (0.52-1.04) mg/dL Est GFR (CKD-EPI)AfAm >90 (>60 ml/min/1.73 sqM) Est GFR (CKD-EPI)NonAf >90 (>60 ml/min/1.73 sqM) Glucose 171 H (74-99) mg/dL Calcium 10.0 (8.4-10.2) mg/dL Total Bilirubin 0.4 (0.2-1.3) mg/dL AST 30 (14-36) U/L ALT 30 (4-34) U/L Alkaline Phosphatase 52 (38-126) U/L Troponin I <0.012 (0.000-0.034) ng/mL Total Protein 6.5 (6.3-8.2) g/dL Albumin 4.0 (3.5-5.0) g/dL Disposition Clinical Impression: Thoracic back pain, Costochondritis Disposition: HOME SELF-CARE Condition: Stable Instructions (If sedation given, give patient instructions): Costochondritis (ED) Additional Instructions: Please return to the Emergency Department if symptoms worsen or any other concerns. Recommended anti-inflammatory such as ibuprofen or Aleve as discussed. Follow up with your primary care physician. Is patient prescribed a controlled substance at d/c from ED?: No Referrals: Gregory Huerta MD [Primary Care Provider] - 1-2 days Time of Disposition: 13:05
[2021-01-07 12:22] LABS: ALT 30 U/L (4-34); AST 30 U/L (14-36); African American GFR (CKD) >90 (>60 ml/min/1.73 sqM); Alkaline Phosphatase 52 U/L (38-126); Anion Gap 7 mmol/L; Blood Urea Nitrogen 18 mg/dL (7-17); Carbon Dioxide 25 mmol/L (22-30); Chloride 105 mmol/L (98-107); Glucose 171 mg/dL (74-99); Non-African American GFR(CKD) >90 (>60 ml/min/1.73 sqM); Potassium 4.3 mmol/L (3.5-5.1); Sodium 137 mmol/L (137-145); Total Bilirubin 0.4 mg/dL (0.2-1.3); Total Protein 6.5 g/dL (6.3-8.2)
--- NOTE | 2021-01-07 12:35 | XR ---
EXAMINATION TYPE: XR chest 2V DATE OF EXAM: 01/07/2021 COMPARISON: 05/25/2020 HISTORY: Right upper chest pain TECHNIQUE: Frontal and lateral views of the chest are obtained. FINDINGS: There is no focal air space opacity, pleural effusion, or pneumothorax seen. The cardiac silhouette size is within normal limits. The osseous structures are intact. Again seen are [place] on rods visualized portion of the thoracic spine and spinal stimulator. IMPRESSION: No acute cardiopulmonary process.
--- NOTE | 2021-01-07 12:38 | XR ---
Thoracic spine. HISTORY: Upper right sided chest pain. COMPARISON: None. TECHNIQUE: 3 views of thoracic spine were obtained. FINDINGS: There is mild to moderate S-shaped curvature of the thoracic spine with Lei rods in the visual ized portion of the mid to lower thoracic spine. There is a spinal stimulator in the mid to upper por tion of the thoracic spine. There is mild diffuse degenerative disc disease in the mid and upper thoracic spine were there is mil d spondylosis. There is no definite fracture or malalignment on the sagittal views. The paraspinal soft tissues are unremarkable. IMPRESSION: Postsurgical changes as described above. Moderate degenerative disc disease throughout the thoracic s pine. No acute abnormality.
[2021-01-07 13:38] VITALS: BP 154/82; PULSE 79; TEMP 98.2
== END 2021-01-07 13:40 | disposition home or self-care (01) ==
LOC: EC 10:44
DX: M54.6 Pain in thoracic spine (principal); M94.0 Chondrocostal junction syndrome [Tietze]; I10 Essential (primary) hypertension; K21.9 Gastro-esophageal reflux disease without esophagitis; Z87.891 Personal history of nicotine dependence; Z79.01 Long term (current) use of anticoagulants; Z79.1 Long term (current) use of non-steroidal anti-inflammatories (NSAID); Z88.0 Allergy status to penicillin; Z88.1 Allergy status to other antibiotic agents; Z88.2 Allergy status to sulfonamides
CPT/HCPCS: 36415; 71046; 72070; 80053; 84484; 85025; 93005; 99285

== ENCOUNTER → 2021-01-22 | Outpatient (CLI) | payer MEDICARE ==
--- NOTE | 2021-01-22 12:56 | US ---
EXAMINATION TYPE: US abdomen limited DATE OF EXAM: 01/22/2021 COMPARISON: NONE CLINICAL HISTORY: R79.89 elevated lft. 1 episode of elevated lft's, patient not symptomatic, h/o chol ecystectomy EXAM MEASUREMENTS: Liver Length: 19.5 cm Gallbladder Wall: Surgically absent CBD: 1.4 cm Right Kidney: 11.5 x 4.7 x 4.6 cm Pancreas: limited views Liver: very difficult to penetrate, slightly enlarged Gallbladder: Surgically absent Evidence for sonographic Nunez's sign: no CBD: dilated with no obvious obstruction Right Kidney: wnl IMPRESSION: 1. Surgically absent gallbladder. 2. Enlarged, Heterogeneous, echogenic gallbladder is nonspecific but most likely due to hepatic steat osis. Clinical correlation is recommended.
== END | disposition home or self-care (01) ==
LOC: RADUSWWP 08:57
PROVIDERS: ATTEND Pediatrics
DX: R16.0 Hepatomegaly, not elsewhere classified (principal); Z90.49 Acquired absence of other specified parts of digestive tract
CPT/HCPCS: 76705

== ENCOUNTER → 2021-01-22 | Outpatient (CLI) | payer MEDICARE ==
--- NOTE | 2021-01-22 15:25 | CT ---
EXAMINATION TYPE: CT lumbar spine wo con DATE OF EXAM: 01/22/2021 COMPARISON: None HISTORY: chronic low back pain CT DLP: 1732.[address] of the lumbar spine was performed. Bone and soft tissue window settings are submitted as well as coronal and sagittal reconstructions. L1-L2: Postoperative changes of lumbar fusion with pedicular screws in place. Moderate degenerative d isc space narrowing. No significant disc herniation protrusion or central stenosis. L2-L3: Postoperative changes of lumbar fusion and pedicular screw placement. No disc herniation protr usion or central stenosis. Streak artifact limits evaluation. L3-L4: Postoperative changes of lumbar fusion. Pedicular screws are in place. Streak artifact limits evaluation. No evidence for disc herniation, protrusion or central stenosis. L4-L5: Postoperative changes of lumbar fusion. Pedicular screws are in place. Streak artifact limits evaluation. No evidence for disc herniation, protrusion or central stenosis. L5-S1: Stable anterolisthesis L5 on S1 measuring 6.2 mm. Vacuum disks noted. Changes of fusion. Pedic ular screws in place. Streak artifact limits evaluation No paraspinal masses are identified. Lumbar segments are free if fracture. IMPRESSION: 1. Stable extensive postoperative change with scoliotic curvature convex to the left as well as grade 1 anterolisthesis L5 on S1. Lei rods in place with extensive changes of fusion. Streak artifa ct limits evaluation.
== END | disposition home or self-care (01) ==
LOC: RADCTMAIN 14:19
PROVIDERS: ATTEND Psychiatry & Neurology Neurology
DX: M41.87 Other forms of scoliosis, lumbosacral region (principal); M43.17 Spondylolisthesis, lumbosacral region; Z98.1 Arthrodesis status
CPT/HCPCS: 72131

== ENCOUNTER → 2021-02-28 | Outpatient (CLI) | payer MEDICARE ==
--- NOTE | 2021-02-28 12:36 | XR ---
EXAMINATION TYPE: XR chest 2V DATE OF EXAM: 02/28/2021 COMPARISON: 01/07/2021 TECHNIQUE: PA and lateral views submitted. HISTORY: Pain FINDINGS: The lungs are clear and there is no pneumothorax, pleural effusion, or focal pneumonia. Surgical ch radha involving the vertebral column. Stimulator device and lead overlying the thoracic spine with sco liosis and degenerative changes. Hypertrophic and degenerative changes spine. Surgical clips in the a bdomen. Hyperinflation suggests COPD. Somewhat irregular linear density in the right upper lobe. Coul d be related to scar other etiologies not excluded. IMPRESSION: 1. Correlate for COPD linear irregular density in the right upper lobe. Recommend CT of the chest..
[2021-02-28 12:49] LABS: Magnesium 1.8 mg/dL (1.6-2.3); Phosphorus 3.5 mg/dL (2.5-4.5)
--- NOTE | 2021-02-28 12:56 | MM ---
Reason for exam: additional evaluation requested from prior study. Last mammogram was performed 1 year and 11 months ago. History: Patient is postmenopausal. Family history of breast cancer in maternal grandmother at age 94. Reductions of both breasts, 2010. Excisional biopsy of the left breast. Physical Findings: Nurse did not find any significant physical abnormalities on exam. MG 3D Diag Mammo W/Cad BYRON Bilateral CC and MLO view(s) were taken. Prior study comparison: April 01, 2019, right breast MG 3d work up w/cad RT. March 18, 2019, bilateral MG 3d screening mammo w/cad. There are scattered fibroglandular densities. There is chronic nodularity bilaterally. There is no dominant lesion. No significant new findings when compared with previous films. These results were verbally communicated with the patient and result sheet given to the patient on 02/28/21. ASSESSMENT: Benign, BI-RAD 2 RECOMMENDATION: Routine screening mammogram of both breasts in 1 year.
== END | disposition home or self-care (01) ==
LOC: RADMAMWWP 10:55
PROVIDERS: ATTEND Pediatrics
DX: N64.89 Other specified disorders of breast (principal); N63.10 Unspecified lump in the right breast, unspecified quadrant; N63.20 Unspecified lump in the left breast, unspecified quadrant; Z78.0 Asymptomatic menopausal state; Z80.3 Family history of malignant neoplasm of breast; J44.9 Chronic obstructive pulmonary disease, unspecified
CPT/HCPCS: 83735; 84100; 82306; 83970; 71046; 77066; 36415; G0279; 77062

== ENCOUNTER → 2021-03-27 | Outpatient (CLI) | payer MEDICARE ==
[2021-03-27 13:43] LABS: African American GFR (CKD) >90 (>60 ml/min/1.73 sqM); Blood Urea Nitrogen 18 mg/dL (7-17); Non-African American GFR(CKD) >90 (>60 ml/min/1.73 sqM)
--- NOTE | 2021-03-28 09:06 | CT ---
EXAMINATION TYPE: CT chest w con DATE OF EXAM: 03/27/2021 COMPARISON: chest x-ray 02/28/2021, CT chest 01/05/2016 HISTORY: Abnormal cxr. CT DLP: 600 mGycm Automated exposure control for dose reduction was used. CONTRAST: CT scan of the chest is performed with IV Contrast, patient injected with 100 mL of Isovue M300. FINDINGS: LUNGS: The lungs are stable with areas of scarring again noted within the left lower lobe and left up per lobe, right upper lobe and right lower lobe, there is no concerning parenchymal mass or nodule id entified. There is no pleural effusion or pneumothorax seen. The tracheobronchial tree is patent. MEDIASTINUM: There are no greater than 1 cm hilar or mediastinal lymph nodes. Calcified mediastinal nodes present prevascular region, retrocaval pretracheal and subcarinal regions at the level of the d istal esophagus, shotty nodes are present as on prior. No pericardial effusion is seen. AORTA: No additional significant abnormality is seen. OTHER: Postoperative changes are again noted in the lumbar spine, there is artifact present, patient is post cholecystectomy with some prominence of the biliary system likely due to postcholecystectomy change. Liver shows low attenuation likely due to hepatic steatosis. Stimulator leads course into th e spinal canal, terminating at approximately the T7 level. Scoliotic curvature is again noted. IMPRESSION: Chronic scarring present within the chest. Probable old granulomatous disease. Postopera tive changes and additional findings above.
== END | disposition home or self-care (01) ==
LOC: RADCTMAIN 13:03
PROVIDERS: ATTEND Pediatrics
DX: J98.4 Other disorders of lung (principal); Z98.890 Other specified postprocedural states
CPT/HCPCS: 82565; 84520; 71260; 36415; Q9967

== ENCOUNTER 2021-05-27 14:05 | Emergency (ER) | payer MEDICARE ==
[2021-05-27 14:34] VITALS: BP 140/97; PULSE 70; RESP 18; TEMP 98.7
[2021-05-27] MEDS ORDERED: MORPHINE SULFATE 4 MG/ML SYRINGE IM STA ×2 (15:00→15:40)
[2021-05-27] MEDS ORDERED: KETOROLAC 15 MG/ML 1 ML VIAL IM STA (15:41)
--- NOTE | 2021-05-27 16:09 | XR ---
EXAMINATION TYPE: XR shoulder complete RT DATE OF EXAM: 05/27/2021 CLINICAL HISTORY: EXAMINATION TYPE: XR shoulder complete RT DATE OF EXAM: 05/27/2021 CLINICAL HISTORY: Pain after fall TECHNIQUE: Three views of the right shoulder are obtained. COMPARISON: None. FINDINGS: There is marked subcoracoid dislocation of the humeral head. Partially visualized spinal co rd stimulator and spinal fusion hardware. IMPRESSION: There is an anterior shoulder dislocation.
--- NOTE | 2021-05-27 16:11 | ED ---
General Adult HPI - General Chief complaint: Extremity Injury, Upper Stated complaint: Fall-Shoulder Pain Time Seen by Provider: 05/27/21 15:00 Source: patient, RN notes reviewed, old records reviewed Mode of arrival: wheelchair Limitations: physical limitation - History of Present Illness Initial comments: 71-year-old female presents status post fall. This was a mechanical fall, she fell onto her right shoulder. There was no wrist or elbow injury, no head or neck trauma. No anticoagulation. She is complaining of pain with any movement of the right shoulder. - Related Data Home Medications Medication Instructions Recorded Confirmed HYDROcodone/APAP 10-325MG [[place] 1 each PO BID PRN 01/25/14 01/31/14 10] Lansoprazole [Prevacid] 15 mg PO DAILY 01/25/14 01/31/14 Magnesium Oxide [Mag-Ox] 800 mg PO DAILY 01/25/14 01/31/14 Meloxicam 15 mg PO DAILY 01/25/14 01/31/14 Zolpidem Tartrate [Ambien Cr] 12.5 mg PO HS 01/25/14 01/31/14 amLODIPine BESYLATE/BENAZEPRIL 5 - 20 mg PO DAILY 01/25/14 01/31/14 [Lotrel 5-20 mg Capsule] Previous Rx's Medication Instructions Recorded HYDROcodone/APAP 10-325MG [[place] 1 - 2 each PO Q6H PRN #60 tab 02/03/14 10-325] Warfarin [Coumadin] 2.5 mg PO DAILY #1 tab 02/03/14 Allergies Allergy/AdvReac Type Severity Reaction Status Date / Time cephalexin monohydrate Allergy Unknown Verified 05/27/21 14:33 [From Keflex] Childhood Penicillins Allergy Rash/Hives Verified 05/27/21 14:33 Sulfa (Sulfonamide Allergy Unknown Verified 05/27/21 14:33 Antibiotics) Childhood Review of Systems ROS Statement: Those systems with pertinent positive or pertinent negative responses have been documented in the HPI. ROS Other: All systems not noted in ROS Statement are negative. Past Medical History Past Medical History: GERD/Reflux, Hypertension, Osteoarthritis (OA) Additional Past Medical History / Comment(s): Degenerative disc disease History of Any Multi-Drug Resistant Organisms: None Reported Past Surgical History: Adenoidectomy, Appendectomy, Back Surgery, Breast Surgery, Cholecystectomy, Joint Replacement, Orthopedic Surgery, Tonsillectomy Additional Past Surgical History / Comment(s): ARTHROSCOPIC KNEE/TOTAL LEFT KNEE, TOTAL RIGHT KNEE Past Anesthesia/Blood Transfusion Reactions: No Reported Reaction Past Psychological History: No Psychological Hx Reported Smoking Status: Former smoker Past Alcohol Use History: None Reported Past Drug Use History: None Reported General Exam Limitations: physical limitation General appearance: alert, in no apparent distress Head exam: Present: atraumatic, normocephalic Eye exam: Present: normal appearance, PERRL ENT exam: Present: normal exam Neck exam: Present: normal inspection. Absent: tenderness, meningismus Respiratory exam: Present: normal lung sounds bilaterally. Absent: respiratory distress, wheezes Cardiovascular Exam: Present: regular rate, normal rhythm GI/Abdominal exam: Present: soft. Absent: distended, tenderness, guarding Extremities exam: Present: other (Right upper extremity, suspect anterior dislocation of the shoulder, distal pulses are intact) Neurological exam: Present: alert, oriented X3, CN II-XII intact. Absent: motor sensory deficit Psychiatric exam: Present: normal affect, normal mood Skin exam: Present: warm, dry, intact Course Vital Signs 05/27/21 14:31 Temperature 98.7 F Pulse Rate 70 Respiratory 18 Rate Blood Pressure 140/97 O2 Sat by Pulse 97 Oximetry Procedures - Orthopedic Joint Reduction Joint #1 Consent Obtained: verbal consent Side: right Joint Reduction Location: shoulder Analgesia: other (IM morphine and Toradol) Shoulder Technique Used (if applicable): traction/counter-traction, external rotation Post-Reduction Neuro Exam: intact Post-Reduction Vascular Exam: intact Post Reduction X-Ray Obtained: Yes Post Reduction X-Ray Results: reduced Splint Applied: Yes Patient Tolerated Procedure: well Medical Decision Making - Medical Decision Making 71-year-old female with right shoulder dislocation. Shoulder was reduced in the emergency department, repeat x-ray confirming reduction. Patient placed in a sling. She is given orthopedic follow-up. Return parameters discussed. Disposition Clinical Impression: Dislocation of shoulder region Disposition: HOME SELF-CARE Condition: Good Instructions (If sedation given, give patient instructions): Shoulder Dislocation (ED) Is patient prescribed a controlled substance at d/c from ED?: No Referrals: Gregory Huerta MD [Primary Care Provider] - 1-2 days Sudhir Gomez MD [Medical Doctor] - 1-2 days Time of Disposition: 16:40
--- NOTE | 2021-05-27 16:46 | XR ---
EXAMINATION TYPE: XR shoulder limited RT DATE OF EXAM: 05/27/2021 CLINICAL HISTORY: Dislocation TECHNIQUE: One view of the right shoulder are obtained. COMPARISON: Same day radiograph FINDINGS: There is no acute fracture/dislocation evident in the right shoulder. The acromioclavicul ar and glenohumeral joint spaces appear within normal limits. unremarkable. IMPRESSION: Successful reduction of the right shoulder.
== END 2021-05-27 16:44 | disposition home or self-care (01) ==
LOC: EC 14:05
DX: S43.004A Unspecified dislocation of right shoulder joint, initial encounter (principal); I10 Essential (primary) hypertension; K21.9 Gastro-esophageal reflux disease without esophagitis; M19.90 Unspecified osteoarthritis, unspecified site; Z79.01 Long term (current) use of anticoagulants; Z79.1 Long term (current) use of non-steroidal anti-inflammatories (NSAID); Z79.899 Other long term (current) drug therapy; Z87.891 Personal history of nicotine dependence; Z88.0 Allergy status to penicillin; Z88.1 Allergy status to other antibiotic agents; Z88.2 Allergy status to sulfonamides; Z90.49 Acquired absence of other specified parts of digestive tract; W19.XXXA Unspecified fall, initial encounter
CPT/HCPCS: 23650; 96372 ×3; 99284; 73020; 73030; J2270; J1885

== ENCOUNTER → 2022-07-18 | Outpatient (CLI) | payer MEDICARE ==
[2022-07-18 12:15] LABS: African American GFR (CKD) >90 (>60 ml/min/1.73 sqM); Blood Urea Nitrogen 22 mg/dL (7-17); Non-African American GFR(CKD) 85 (>60 ml/min/1.73 sqM)
--- NOTE | 2022-07-18 16:00 | CT ---
EXAMINATION TYPE: CT lumbar spine wo/w con CT DLP: 1565.7 mGycm, Automated exposure control for dose reduction was used. DATE OF EXAM: 07/18/2022 3:07 PM COMPARISON: CT lumbar spine 01/22/2021. CLINICAL INDICATION:Female, 72 years old with history of M54.50 low back pain, M51.36 degeneration, M 43.27; PHH, pain TECHNIQUE: Multiple axial images were obtained from the midportion of T11 through the sacroiliac sivan nts before and after the uneventful administration of 70 cc of Isovue-300 intravenously. Soft tissue and bone windows in coronal and sagittal planes were obtained and reviewed. FINDINGS: Alignment: There are 5 lumbar type vertebral bodies. Levoscoliotic curvature of the lumbar spine with apex at L2. Stable grade 1 anterolisthesis of L5 on S1. Bone: No evidence of fracture is identified. Postsurgical changes with bilateral pedicular screws an d Lei rods involving T11-S1. Hardware appears intact. Discs: L1-L2: Postoperative changes of lumbar fusion with pedicular screws in place. Moderate degenerative d isc space narrowing. No significant disc herniation or central stenosis. No significant neural forami nal stenosis. L2-L3: Postoperative changes of lumbar fusion and pedicle screw placement. No disc herniation or cent ral stenosis. Streak artifact limits evaluation. No significant neural foraminal stenosis. L3-L4: Postoperative changes of lumbar fusion. Pedicular screws are in place. Streak artifact limits evaluation. No evidence for disc herniation or significant central canal stenosis. No significant ponce ral foraminal stenosis. L4-L5: Postoperative changes of lumbar fusion. Pedicular screws are in place. This fusion cages iden tified. Streak artifact that evaluation. No evidence for disc herniation or significant central canal stenosis. No significant neural foraminal stenosis. L5-S1: Stable anterolisthesis of L5 on S1. Postoperative changes in the lumbar fusion. Pedicle screws are in place. Vacuum disc disease is noted with disc fusion cage. No significant neural foraminal st enosis. Other: Bibasilar subsegmental atelectasis. Distal colonic diverticulosis. Spinal stimulator leads red emonstrated. No abnormal contrast enhancement. IMPRESSION: 1. No evidence of fracture of the lumbar spine. No abnormal contrast enhancement. 2. Stable extensive postsurgical changes with Lei rods and fusion changes. Streak artifact alba its evaluation. Hardware appears intact. Stable grade 1 anterolisthesis of L5 on S1. No gross evidenc e of significant central canal or neural foraminal stenosis.
== END | disposition home or self-care (01) ==
LOC: RADCTMAIN 11:12
PROVIDERS: ATTEND Physical Medicine & Rehabilitation Pain Medicine
DX: M43.17 Spondylolisthesis, lumbosacral region (principal); M51.36 Other intervertebral disc degeneration, lumbar region; M43.27 Fusion of spine, lumbosacral region; M53.3 Sacrococcygeal disorders, not elsewhere classified; G89.4 Chronic pain syndrome; Z96.89 Presence of other specified functional implants; Z79.891 Long term (current) use of opiate analgesic
CPT/HCPCS: 82565; 84520; 72133; 36415; Q9967

== ENCOUNTER → 2022-08-12 | Outpatient (CLI) | payer MEDICARE ==
--- NOTE | 2022-08-13 09:25 | MM ---
Reason for Exam: Screening (asymptomatic). Last mammogram was performed 1 year(s) and 5 month(s) ago. Patient History: Menarche at age 13. First Full-Term at age 20. Postmenopausal. Excisional Biopsy on the Left side. 2009, Bilateral Reduction. Maternal grandmother had breast cancer, age 94. Risk Values: Marilin 5 year model risk: 1.5%. NCI Lifetime model risk: 4.1%. Prior Study Comparison: 03/18/2019 Bilateral Screening Mammogram, [facility]. 04/01/2019 Right Diagnostic Mammogram, [facility]. 02/28/2021 Bilateral Diagnostic Mammogram, [facility]. Tissue Density: The breast tissue is almost entirely fat. Findings: Analyzed By CAD. There is no suspicious group of microcalcifications or new suspicious mass in either breast. Overall Assessment: Negative, BI-RAD 1 Management: Screening Mammogram of both breasts in 1 year. A clinical breast exam by your physician is recommended on an annual basis and results should be correlated with mammographic findings. [facility] will attempt to contact patient to return for supplemental views and ultrasound if indicated. Electronically signed and approved by: Peña Richmond DO
== END | disposition home or self-care (01) ==
LOC: RADMAMWWP 11:52
PROVIDERS: ATTEND Pediatrics
DX: Z12.31 Encounter for screening mammogram for malignant neoplasm of breast (principal); Z78.0 Asymptomatic menopausal state; Z80.3 Family history of malignant neoplasm of breast; Z98.890 Other specified postprocedural states
CPT/HCPCS: 77063; 77067

== ENCOUNTER → 2022-10-22 | Outpatient (CLI) | payer MEDICARE ==
[2022-10-22 15:46] LABS: Basophils # (A) 0.05 X 10*3/uL (0.00-0.10); Basophils % (A) 0.9 %; Eosinophils # (A) 0.15 X 10*3/uL (0.04-0.35); Eosinophils % (A) 2.8 %; HCT 44.1 % (37.2-46.3); HGB 14.3 g/dL (12.0-15.0); Immature Grans, Automated 0.2 %; Lymphocytes # (A) 1.44 X 10*3/uL (0.90-5.00); MCH 29.8 pg (27.0-32.0); MCHC 32.4 g/dL (32.0-37.0); MCV 91.9 fL (80.0-97.0); Mean Platelet Volume 9.4 fL (9.5-12.2); Monocytes # (A) 0.42 X 10*3/uL (0.20-1.00); Monocytes % (A) 7.9 %; NRBC Per 100 WBC 0 /100 WBCS (0.0-0.0); Neutrophils # (A) 3.26 X 10*3/uL (1.80-7.70); Neutrophils % (A) 61.2 %; Platelet Count 204 X 10*3/uL (140-440); RDW 12.8 % (11.5-14.5); WBC 5.33 X 10*3/uL (4.50-10.00)
[2022-10-22 16:32] LABS: ALT 24 U/L (8-44); AST 18 U/L (13-35); African American GFR (CKD) 106.3 (60.0-200.0); Albumin 4.5 g/dL (3.8-4.9); Alkaline Phosphatase 66 U/L (41-126); Blood Urea Nitrogen 14.4 mg/dL (9.0-27.0); Calcium 10.4 mg/dL (8.7-10.3); Carbon Dioxide 26.9 mmol/L (20.0-27.5); Chloride 103 mmol/L (96-109); Globulin 2.5 g/dL (1.6-3.3); Glucose 107 mg/dL (70-110); LDL Cholesterol,Calculated 125.9 mg/dL (0.0-131.0); Non-African American GFR(CKD) 91.7 (60.0-200.0); Potassium 4.2 mmol/L (3.5-5.5); Sodium 139 mmol/L (135-145)
[2022-10-22 19:01] LABS: Urine Creatinine 71.3 mg/dL (28.0-217.0)
== END | disposition home or self-care (01) ==
LOC: LABWHC1 10:53
PROVIDERS: ATTEND Pediatrics
DX: Z00.00 Encounter for general adult medical examination without abnormal findings (principal); E11.9 Type 2 diabetes mellitus without complications; E03.9 Hypothyroidism, unspecified; I10 Essential (primary) hypertension; E55.9 Vitamin D deficiency, unspecified
CPT/HCPCS: 36415; 80053; 80061; 82043; 82306; 82570; 83036; 84443; 85025

== ENCOUNTER 2024-07-16 14:33 | Observation (INO) | payer MEDICARE ==
[2024-07-16] MEDS: SODIUM CHLORIDE 0.9% 1,000 ML IV STA ×2 (15:49→17:53)
[2024-07-16 16:18] LABS: Basophils # (A) 0.1 k/uL (0-0.2); Basophils % (A) 1 %; Eosinophils # (A) 0.5 k/uL (0-0.7); Eosinophils % (A) 7 %; HCT 37.9 % (34.0-46.0); HGB 12.5 gm/dL (11.4-16.0); Lymphocytes # (A) 2.3 k/uL (1.0-4.8); Lymphocytes % (A) 32 %; MCH 30.7 pg (25.0-35.0); MCHC 32.9 g/dL (31.0-37.0); MCV 93.3 fL (80.0-100.0); Mean Platelet Volume 6.8; Monocytes # (A) 0.5 k/uL (0-1.0); Monocytes % (A) 6 %; Neutrophils # (A) 3.9 k/uL (1.3-7.7); Neutrophils % (A) 52 %; Platelet Count 242 k/uL (150-450); RBC 4.06 m/uL (3.80-5.40); RDW 13.1 % (11.5-15.5); WBC 7.4 k/uL (3.8-10.6)
[2024-07-16 16:26] LABS: Partial Thromboplastin Time 24.3 sec (22.0-30.0); Prothrombin Time 11.1 sec (10.0-12.5)
--- NOTE | 2024-07-16 16:27 | XR ---
EXAMINATION TYPE: XR chest 2V DATE OF EXAM: 07/16/2024 4:19 PM COMPARISON: Chest radiographs from 02/28/2021 CLINICAL INDICATION: Female, 74 years old with history of Weakness; [facility] TECHNIQUE: XR chest 2V Frontal and lateral views of the chest. FINDINGS: Lungs/Pleura: There is no evidence of pleural effusion, focal consolidation, or pneumothorax. Pulmonary vascularity: Unremarkable. Heart/mediastinum: Cardiomediastinal silhouette is unremarkable. Musculoskeletal: No acute osseous pathology. Fixation hardware in the spine appears intact. Other findings: None IMPRESSION: No acute cardiopulmonary disease/process. [facility], , 07/16/2024 4:24 PM
--- NOTE | 2024-07-16 16:31 | ED ---
General Adult HPI - General Chief complaint: Dizziness Stated complaint: dizziness Time Seen by Provider: 07/16/24 15:20 Source: patient, RN notes reviewed, old records reviewed Mode of arrival: wheelchair Limitations: no limitations - History of Present Illness Initial comments: Patient is a 74-year-old female who presents emergency department complaining of low blood pressure, lightheaded/dizziness, as well as some mild slurred speech. Patient's presents with the patient. Patient recently had the initiation of her morphine pump this past Friday. It is currently Friday. States she awoke this morning with lower blood pressure, some mildly slurred speech like she was overmedicated, and with lightheadedness when she would stand up. States it usually resolves when she sits down. Overall feels better when compared with earlier today. No symptoms yesterday. Has no other acute complaints. Pain pump is located in her abdominal wall on the left. Denies any fevers, chills, cough, chest pain, shortness of breath, nausea, vomiting, diarrhea. No other acute complaints at this time. Presents for further evaluation at this time. - Related Data Home Medications Medication Instructions Recorded Confirmed Meloxicam 15 mg PO DAILY 01/25/14 07/16/24 Gabapentin [Neurontin] 400 mg PO BID-W/MEALS 07/16/24 07/16/24 Gabapentin [Neurontin] 800 mg PO HS 07/16/24 07/16/24 HYDROcodone/APAP 10-325MG [Black 1 tab PO QID PRN 07/16/24 07/16/24 10-325] Latanoprost [Latanoprost 0.005%] 1 drop BOTH EYES HS 07/16/24 07/16/24 Levothyroxine Sodium [Synthroid] 75 mcg PO DAILY 07/16/24 07/16/24 Losartan Potassium [Cozaar] 100 mg PO DAILY 07/16/24 07/16/24 Metoprolol Succinate (ER) [Toprol 25 mg PO DAILY 07/16/24 07/16/24 Xl] Omeprazole [PriLOSEC] 20 mg PO DAILY 07/16/24 07/16/24 Patient Own Pump 0 bag 07/16/24 amLODIPine [Norvasc] 10 mg PO DAILY 07/16/24 07/16/24 traZODone HCL [Desyrel] 200 mg PO HS 07/16/24 07/16/24 Allergies Allergy/AdvReac Type Severity Reaction Status Date / Time cephalexin monohydrate Allergy Unknown Verified 07/16/24 14:37 [From Keflex] Childhood Penicillins Allergy Unknown Verified 07/16/24 15:34 Childhood Sulfa (Sulfonamide Allergy Unknown Verified 07/16/24 15:34 Antibiotics) Childhood Review of Systems ROS Statement: Those systems with pertinent positive or pertinent negative responses have been documented in the HPI. Review of Systems: CONST: Denies fever EYES: Denies blurry vision ENT: Denies nasal congestion C/V: Denies Chest pain RESP: Denies shortness of breath GI: Denies abdominal pain : Denies dysuria SKIN: Denies rash. MSK: Denies joint pain. NEURO: Denies headache ROS Other: All systems not noted in ROS Statement are negative. Past Medical History Past Medical History: GERD/Reflux, Hypertension, Osteoarthritis (OA) Additional Past Medical History / Comment(s): Degenerative disc disease History of Any Multi-Drug Resistant Organisms: None Reported Past Surgical History: Adenoidectomy, Appendectomy, Back Surgery, Breast Surgery, Cholecystectomy, Joint Replacement, Orthopedic Surgery, Tonsillectomy Additional Past Surgical History / Comment(s): ARTHROSCOPIC KNEE/TOTAL LEFT KNEE, TOTAL RIGHT KNEE Past Anesthesia/Blood Transfusion Reactions: No Reported Reaction Past Psychological History: No Psychological Hx Reported Smoking Status: Former smoker Past Alcohol Use History: None Reported Past Drug Use History: None Reported General Exam - General Exam Comments Initial Comments: General: Appears in no acute distress. HEAD: Normal with no signs of head trauma. EYES: PERRLA, EOMI, conjunctiva normal, no discharge.'s are 1 mm and equal bilaterally. ENT: Hearing grossly intact, normal oropharynx. RESPIRATORY: Clear breath sounds bilaterally. No wheezes, rales, or rhonchi. C/V: Regular rate and rhythm. S1 and S2 auscultated, no edema, peripheral pulses 2+ and intact throughout ABD: Abd is soft, nontender, nondistended EXT: Normal range of motion, no obvious deformity SKIN: No rashes or lesions observed on exposed skin. Incision site does not appear infected. No erythema. No discharge. Healing appropriately. NEURO: Alert and oriented x 4. Cranial nerves II-XII intact. No focal sensory or strength deficits. NIH is currently 0. Cerebellar function is within normal limits as evident by normal finger-nose testing, [id number] testing as well as absence of dysdiadochokinesia. Limitations: no limitations Course Vital Signs 07/16/24 07/16/24 07/16/24 14:38 15:06 15:24 Temperature 97.3 F L Pulse Rate 67 56 L Respiratory 18 14 Rate Blood Pressure 78/51 89/58 99/61 O2 Sat by Pulse 94 L 94 L Oximetry 07/16/24 07/16/24 16:30 17:54 Temperature Pulse Rate 62 Respiratory 14 14 Rate Blood Pressure 90/54 O2 Sat by Pulse 97 Oximetry Medical Decision Making - Medical Decision Making Was pt. sent in by a medical professional or institution (, PA, COMMUNITY ASSOCIATION MANAGER, urgent care, hospital, or fpc...) When possible be specific @ -No Did you speak to anyone other than the patient for history (EMS, parent, family, police, friend...)? What history was obtained from this source @ -Patient's assist with patient's recent past medical history including recent initiation of morphine pain pump as well as the patient having history of high blood pressure on blood pressure medications. Took all medications today. Did you review nursing and triage notes (agree or disagree)? Why? @ -I reviewed and agree with nursing and triage notes Were old charts reviewed (outside hosp., previous admission, EMS record, old EKG, old radiological studies, urgent care reports/EKG's, fpc records)? Report findings @ -Reviewed EKG from December 2020 with no obvious significant change when compared with today's EKG. Differential Diagnosis (chest pain, altered mental status, abdominal pain women, abdominal pain men, vaginal bleeding, weakness, fever, dyspnea, syncope, headache, dizziness, GI bleed, back pain, seizure, CVA, palpatations, mental health, musculoskeletal)? @ -Differential Dizziness: Benign paroxysmal positional Vertigo, Meniere's disease, otitis media, acoustic neuroma, vertebrobasilar insufficiency, cerebellar stroke, encephalitis, hypovolemic, arrhythmia, coronary artery syndrome, anemia, this is not meant to be an all-inclusive list EKG interpreted by me (3pts min.). @ -As above X-rays interpreted by me (1pt min.). @ -Chest x-ray reveals no obvious acute cardiopulmonary process. Repeat chest x-ray reveals no significant change. Patient has very mild pulmonary edema. Was obtained following Narcan administration when patient was complaining of some nonproductive cough and difficulty breathing. Will continue to monitor. CT interpreted by me (1pt min.). @ -CT brain reveals no obvious acute intra cranial process or injury. CT abdomen pelvis reveals no obvious acute process or injury. Patient has some mild biliary dilation which is likely chronic. Symptoms as well as patient's labs do not correlate to this finding. U/S interpreted by me (1pt. min.). @ -None done What testing was considered but not performed or refused? (CT, X-rays, U/S, labs)? Why? @ -None What meds were considered but not given or refused? Why? @ -None Did you discuss the management of the patient with other professionals (professionals i.e. , PA, COMMUNITY ASSOCIATION MANAGER, lab, RT, psych nurse, social media marketing manager, key operator, teacher, transport corps officer, business case analyst)? Give summary @ -Discussed the case with Mayra, from Dr. Roberson's office who did consent to patient having the pain pumps daily decreased if we were able to do so. I discussed the case with Dr. No of neurology and Dr. No of ICU who both recommended the steps of contacting anesthesia for possible management. I dis cussed the case with Dr. Diaz of anesthesiology who presented bedside and was able to successfully decrease the rate of the pain pump. I also discussed the case with the admitting provider, Dr. Farah who is covering for Dr. Lyons who accepted the admission. Was smoking cessation discussed for >3mins.? @ -No Was critical care preformed (if so, how long)? @ -Yes, 36 minutes. Were there social determinants of health that impacted care today? How? (Homelessness, low income, unemployed, alcoholism, drug addiction, transportation, low edu. Level, literacy, decrease access to med. care, residential, r ehab)? @ -No Was there de-escalation of care discussed even if they declined (Discuss DNR or withdrawal of care, Hospice)? DNR status @ -No What co-morbidities impacted this encounter? (DM, HTN, Smoking, COPD, CAD, Cancer, CVA, ARF, Chemo, Hep., AIDS, mental health diagnosis, sleep apnea, morbid obesity)? @ -None Was patient admitted / discharged? Hospital course, mention meds given and route, prescriptions, significant lab abnormalities, going to OR and other pertinent info. @ -Patient presents with dizziness, as well as low blood pressure. It could be related to polypharmacy as patient was recently initiated on a morphine pain pump. She has no other symptoms at this time. Seems to be a lightheadedness dizzy sensation not a room spinning sensation that improves with sitting down. Patient also had low blood pressure. She took her normal blood pressure medications this morning. She will be given multiple fluid boluses here in the department. Symptoms is began when she awoke this morning we will obtain CT brain as well as CT abdomen pelvis where her pain pump was recently placed to evaluate for any evidence of infection. Labs also be obtained. Patient was in agreement this plan. was in agreement this plan. Presenting blood pressure was 78/51 in triage, is currently 99/61 when I evaluate the patient in the room. EKG shows no signs of acute ischemia.Imaging returned unremarkable. Laboratory studies returned unremarkable as well as including undetectable troponin. Despite 2 L fluid bolus, patient remains appearing like an opiate overdose as well as with hypotension. I am concerned that she is receiving too much of her morphine via her pain pump. Pain pump was placed by a Dr. Gianes who does not have privlages at our facility. Apparently [place]. I was able to contact the person managing the patient's pain pump, marj Nunez at [phone]. Apparently supposed to be on 1.6 mg of morphine over 24 hours per Mayra. She did state that she cannot come to the hospital to adjust the pain pump but states if we do have someone at our facility that can adjust it, they can attempt to decrease the rate. Patient is not stable for discharge as she is hypoxic, lethargic, and hypotensive still. I contacted anesthesiology, Dr. Diaz who will look into the device which is a SynchroMed III. Mayra did inform me that we can place a magnet on the device however it renders the device and she will need replacement if that is the case. Patient remains hypotensive and hypoxic. As we are waiting for definitive care, I will administered a dose of Narcan as well as Zofran. Discussed the Magnant option with family and they agree to attempt to try to decrease the dose initially as they do not want to go through the procedure again which I think is reasonable. Patient was given a dose of Narcan which did improve patient's vital signs and she became more awake but went through some opiate withdrawal symptoms at that time. Was complaining of some coughing which resolved. Chest x-ray did show a little bit of a of pulm vascular congestion at this time but no significant findings. No change in hypoxia. Symptoms did resolve over time. Calls made out to both our neurologist, Dr. No who is not familiar with how these pain problems function. I also spoke with ICU attending Dr. No, who recommended the steps that was already taking. Waiting on anesthesia's response at this time. I discussed findings with anesthesia who presented at bedside. Dr. Diaz and his team were able to decrease the rate of the morphine pain pump. It was found that the pump was set to 4 mg of morphine over 24 hours which is over double what staff at Dr. Gaines's office thought it was set to, and double what the patient thought it was set to. It was decreased to 1.2 mg over 24 hours. Patient's withdrawal symptoms are improved at this time. Patient will be admitted to observation for further observation overnight. Vital signs have all improved. Withdrawal symptoms are improved at this time. Patient was in agreement this plan. I discussed the case with the admitting provider, Dr. Farah who is covering for Dr. Lyons who accepted the admission. Undiagnosed new problem with uncertain prognosis? @ -No Drug Therapy requiring intensive monitoring for toxicity (Heparin, Nitro, Insulin, Cardizem)? @ -No Were any procedures done? @ -No Diagnosis/symptom? @ -Accidental opiate poisoning, opiate overdose Acute, or Chronic, or Acute on Chronic? @ -Acute Uncomplicated (without systemic symptoms) or Complicated (systemic symptoms)? @ -Complicated Side effects of treatment? @ -None Exacerbation, Progression, or Severe Exacerbation] @ -No Poses a threat to life or bodily function? @ -Potentially, yes - Lab Data Result diagrams: 07/16/24 15:49 07/16/24 15:49 Lab Results 07/16/24 07/16/24 07/16/24 Range/Units 15:34 15:49 15:49 WBC 7.4 (3.8-10.6) k/uL RBC 4.06 (3.80-5.40) m/uL Hgb 12.5 (11.4-16.0) gm/dL Hct 37.9 (34.0-46.0) % MCV 93.3 (80.0-100.0) fL MCH 30.7 (25.0-35.0) pg MCHC 32.9 (31.0-37.0) g/dL RDW 13.1 (11.5-15.5) % Plt Count 242 (150-450) k/uL MPV 6.8 Neutrophils % 52 % Lymphocytes % 32 % Monocytes % 6 % Eosinophils % 7 % Basophils % 1 % Neutrophils # 3.9 (1.3-7.7) k/uL Lymphocytes # 2.3 (1.0-4.8) k/uL Monocytes # 0.5 (0-1.0) k/uL Eosinophils # 0.5 (0-0.7) k/uL Basophils # 0.1 (0-0.2) k/uL PT 11.1 (10.0-12.5) sec INR 1.0 (<1.2) APTT 24.3 (22.0-30.0) sec Sodium (137-145) mmol/L Potassium (3.5-5.1) mmol/L Chloride (98-107) mmol/L Carbon Dioxide (22-30) mmol/L Anion Gap mmol/L BUN (7-17) mg/dL Creatinine (0.52-1.04) mg/dL Est GFR (CKD-EPI)AfAm (>60 ml/min/1.73 sqM) Est GFR (CKD-EPI)NonAf (>60 ml/min/1.73 sqM) Glucose (74-99) mg/dL Plasma Lactic Acid Junaid (0.7-2.0) mmol/L Calcium (8.4-10.2) mg/dL Magnesium (1.6-2.3) mg/dL Total Bilirubin (0.2-1.3) mg/dL AST (14-36) U/L ALT (4-34) U/L Alkaline Phosphatase (38-126) U/L Troponin I <0.012 (0.000-0.034) ng/mL Total Protein (6.3-8.2) g/dL Albumin (3.5-5.0) g/dL Influenza Type A (PCR) (Not Detectd) Influenza Type B (PCR) (Not Detectd) RSV (PCR) (Not Detectd) SARS-CoV-2 (PCR) (Not Detectd) 07/16/24 07/16/24 07/16/24 Range/Units 15:49 15:49 15:49 WBC (3.8-10.6) k/uL RBC (3.80-5.40) m/uL Hgb (11.4-16.0) gm/dL Hct (34.0-46.0) % MCV (80.0-100.0) fL MCH (25.0-35.0) pg MCHC (31.0-37.0) g/dL RDW (11.5-15.5) % Plt Count (150-450) k/uL MPV Neutrophils % % Lymphocytes % % Monocytes % % Eosinophils % % Basophils % % Neutrophils # (1.3-7.7) k/uL Lymphocytes # (1.0-4.8) k/uL Monocytes # (0-1.0) k/uL Eosinophils # (0-0.7) k/uL Basophils # (0-0.2) k/uL PT (10.0-12.5) sec INR (<1.2) APTT (22.0-30.0) sec Sodium 135 L (137-145) mmol/L Potassium 4.5 (3.5-5.1) mmol/L Chloride 101 (98-107) mmol/L Carbon Dioxide 29 (22-30) mmol/L Anion Gap 5 mmol/L BUN 21 H (7-17) mg/dL Creatinine 0.60 (0.52-1.04) mg/dL Est GFR (CKD-EPI)AfAm >90 (>60 ml/min/1.73 sqM) Est GFR (CKD-EPI)NonAf >90 (>60 ml/min/1.73 sqM) Glucose 95 (74-99) mg/dL Plasma Lactic Acid Junaid 0.9 (0.7-2.0) mmol/L Calcium 9.9 (8.4-10.2) mg/dL Magnesium 2.0 (1.6-2.3) mg/dL Total Bilirubin 0.2 (0.2-1.3) mg/dL AST 27 (14-36) U/L ALT 18 (4-34) U/L Alkaline Phosphatase 38 (38-126) U/L Troponin I (0.000-0.034) ng/mL Total Protein 6.2 L (6.3-8.2) g/dL Albumin 3.9 (3.5-5.0) g/dL Influenza Type A (PCR) Not Detected (Not Detectd) Influenza Type B (PCR) Not Detected (Not Detectd) RSV (PCR) Not Detected (Not Detectd) SARS-CoV-2 (PCR) Not Detected (Not Detectd) - EKG Data -: EKG Interpreted by Me EKG Comments: 12-lead Electrocardiogram Interpretation Note EKG was reviewed and interpreted by myself. 12-lead ECG performed at 1516 is interpreted by me as revealing sinus bradycardia with first-degree AV block at a rate of 57 beats per minute. [place] is normal. ID interval is 259 ms, QRS duration 78 ms, QTc is 417 ms.. There were no ST or T wave abnormalities to suggest myocardial ischemia or injury. R wave progression across the precordium was satisfactory. By my interpretation this EKG is non-diagnostic for acute ischemia. Critical Care Time Critical Care Time: Yes Total Critical Care Time: 36 Disposition Clinical Impression: Accidental opiate poisoning, Opiate overdose Disposition: ADMITTED IP TO THIS [facility] Condition: Stable Time of Disposition: 19:20
[2024-07-16 16:40] LABS: ALT 18 U/L (4-34); AST 27 U/L (14-36); African American GFR (CKD) >90 (>60 ml/min/1.73 sqM); Albumin 3.9 g/dL (3.5-5.0); Alkaline Phosphatase 38 U/L (38-126); Anion Gap 5 mmol/L; Blood Urea Nitrogen 21 mg/dL (7-17); Calcium 9.9 mg/dL (8.4-10.2); Carbon Dioxide 29 mmol/L (22-30); Chloride 101 mmol/L (98-107); Glucose 95 mg/dL (74-99); Non-African American GFR(CKD) >90 (>60 ml/min/1.73 sqM); Potassium 4.5 mmol/L (3.5-5.1); Sodium 135 mmol/L (137-145); Total Bilirubin 0.2 mg/dL (0.2-1.3); Total Protein 6.2 g/dL (6.3-8.2)
--- NOTE | 2024-07-16 17:22 | CT ---
EXAMINATION TYPE: CT brain wo con DATE OF EXAM: 07/16/2024 COMPARISON: Prior CT brain 2009 CLINICAL INDICATION: Female, 74 years old with history of weakness; PHH, weakness, ams TECHNIQUE: CT of the brain performed without contrast with sagittal and coronal reformats. CT DLP: 1184.4 mGycm Automated exposure control for dose reduction was used. FINDINGS: There is no acute intracranial hemorrhage or midline shift identified. Ventricular and sulcal promine nce is seen. Mild low-attenuation in the periventricular white matter is redemonstrated. The globes a re intact and the visualized sinuses are clear. IMPRESSION: No acute intracranial hemorrhage or midline shift is seen. [facility], , 07/16/2024 5:20 PM
--- NOTE | 2024-07-16 17:28 | CT ---
EXAMINATION TYPE: CT abdomen pelvis w con DATE OF EXAM: 07/16/2024 HISTORY: weakness, hypotension, recent pain pump placement left abd CT DLP: 1298.7mGycm Automated Exposure Control for Dose Reduction was Utilized. CONTRAST: CT scan of the abdomen and pelvis is performed with IV Contrast, patient injected with 100 mL of Isov ue 300. COMPARISON: None. FINDINGS: LUNG BASES: Left posterior basilar consolidation and/or atelectasis. LIVER/GB: Cholecystectomy clips are seen. Moderate extrahepatic biliary dilatation up to 21 mm dobson l image 45 near The rob hepatis. Mild left-sided intrahepatic biliary dilatation. PANCREAS: Focal moderate atrophy in the head. SPLEEN: No significant abnormality is seen. ADRENALS: No significant abnormality is seen. KIDNEYS: No significant abnormality is seen. BOWEL: Scattered colonic diverticula most prominent sigmoid colon. No CT evidence for acute diverticu litis. Small size hiatal hernia. No abnormal small or large bowel dilatation. UTERUS/ADNEXA: No gross abnormality seen. LYMPH NODES: No greater than 1cm abdominal or pelvic lymph nodes are appreciated. OSSEOUS STRUCTURES: Long segment surgical change of the thoracolumbar spine extending into the sacrum causes long segment streak artifact making evaluation suboptimal. Moderate to advanced disc space na rrowing at L3-L4 and L4-L5 levels. Artificial disc material at L5-S1 level. Large anterior spur at L5 -S1 level. Slight grade 1 anterolisthesis L5 on S1. OTHER: Left anterior lower abdominal pain pump with nonspecific surrounding fluid. IMPRESSION: 1. No significant acute finding is seen to account for patient's clinical symptoms. 2. Biliary dilatation is present. Nonemergent MRCP/ERCP follow up should be considered based on clini ana laura and lab correlation. [facility], , 07/16/2024 5:25 PM
[2024-07-16] MEDS: ONDANSETRON 4 MG/2 ML VIAL IVP STA (17:53)
[2024-07-16] MEDS: NALOXONE 0.4 MG/ML 1 ML VIAL IVP STA (17:54)
--- NOTE | 2024-07-16 18:37 | XR ---
EXAMINATION TYPE: XR chest 1V portable DATE OF EXAM: 07/16/2024 COMPARISON: Chest x-ray earlier today CLINICAL INDICATION: Female, 74 years old with history of pain; TECHNIQUE: Single frontal view of the chest is obtained. FINDINGS: Increased interstitial markings bilaterally. The cardiac silhouette size remains within n ormal limits. Scoliotic curvature redemonstrated. Surgical change to the lumbar spine is partially im aged. IMPRESSION: There is new bilateral mild to moderate interstitial edema and/or less likely atypical i nfiltrates. Correlate clinically. [facility], , 07/16/2024 6:35 PM
--- NOTE | 2024-07-16 18:58 | P.PAINCN ---
History of Present Illness - Reason for Consult Consult date: 07/16/24 Intrathecal pain pump adjustment - History of Present Illness I was consulted by emergency department physician for a patient who comes with overdose of opioids secondary to intrathecal pain pump which was put in 3 days ago in another facility. When I came down to see the patient patient appears to be mildly in opioid withdrawal secondary to Narcan injection. According to report patient came to emergency room with drowsiness, decreased rate of breathing, low blood pressure. When I interviewed the patient patient was wide awake and alert with mild shivering possibly secondary to withdrawal. Past Medical History Past Medical History: GERD/Reflux, Hypertension, Osteoarthritis (OA) Additional Past Medical History / Comment(s): Degenerative disc disease History of Any Multi-Drug Resistant Organisms: None Reported Past Surgical History: Adenoidectomy, Appendectomy, Back Surgery, Breast Surgery, Cholecystectomy, Joint Replacement, Orthopedic Surgery, Tonsillectomy Additional Past Surgical History / Comment(s): ARTHROSCOPIC KNEE/TOTAL LEFT KNEE, TOTAL RIGHT KNEE Past Anesthesia/Blood Transfusion Reactions: No Reported Reaction Past Psychological History: No Psychological Hx Reported Smoking Status: Former smoker Past Alcohol Use History: None Reported Past Drug Use History: None Reported Medications and Allergies Home Medications Medication Instructions Recorded Confirmed Type Meloxicam 15 mg PO DAILY 01/25/14 07/16/24 History Gabapentin [Neurontin] 400 mg PO BID-W/MEALS 07/16/24 07/16/24 History Gabapentin [Neurontin] 800 mg PO HS 07/16/24 07/16/24 History HYDROcodone/APAP 10-325MG [[place] 1 tab PO QID PRN 07/16/24 07/16/24 History 10-325] Latanoprost [Latanoprost 0.005%] 1 drop BOTH EYES HS 07/16/24 07/16/24 History Levothyroxine Sodium [Synthroid] 75 mcg PO DAILY 07/16/24 07/16/24 History Losartan Potassium [Cozaar] 100 mg PO DAILY 07/16/24 07/16/24 History Metoprolol Succinate (ER) [Toprol 25 mg PO DAILY 07/16/24 07/16/24 History Xl] Omeprazole [PriLOSEC] 20 mg PO DAILY 07/16/24 07/16/24 History Patient Own Pump 0 bag 07/16/24 History amLODIPine [Norvasc] 10 mg PO DAILY 07/16/24 07/16/24 History traZODone HCL [Desyrel] 200 mg PO HS 07/16/24 07/16/24 History Allergies Allergy/AdvReac Type Severity Reaction Status Date / Time cephalexin monohydrate Allergy Unknown Verified 07/16/24 14:37 [From Keflex] Childhood Penicillins Allergy Unknown Verified 07/16/24 15:34 Childhood Sulfa (Sulfonamide Allergy Unknown Verified 07/16/24 15:34 Antibiotics) Childhood Physical Exam Vitals: Vital Signs Temp Pulse Resp BP Pulse Ox 07/16/24 17:54 14 07/16/24 16:30 62 14 90/54 97 07/16/24 15:24 99/61 07/16/24 15:06 56 L 14 89/58 94 L 07/16/24 14:38 97.3 F L 67 18 78/51 94 L Intake and Output 07/16/24 07/16/24 07/16/24 06:59 14:59 22:59 Other: Weight 72.575 kg - Neurologic Limited physical examinations. Patient appears to be awake alert oriented. No acute focal neurological deficit. Results CBC & Chem 7: 07/16/24 15:49 07/16/24 15:49 Labs: Abnormal Lab Results - Last 24 Hours (Table) 07/16/24 Range/Units 15:49 Sodium 135 L (137-145) mmol/L BUN 21 H (7-17) mg/dL Total Protein 6.2 L (6.3-8.2) g/dL Assessment and Plan Assessment: Opioid overdose secondary to intrathecal pain pump. Plan: Had a long conversation with patient and her . Also had conversation with Mayra who is a of Dr. Snyder. After analysis of the pump as per request medication delivery was decreased from 4.002 mg in 24 hours (0.167 mg/h) to 1.201 mg in 24 hours (0.050 mg/h). Patient's care was handed over to ER physician, and patient is supposed to be admitted for overnight observation. Patient is to see Dr. Edwards on Friday. Time with Patient: Greater than 30 PQRS Measure Charge Sheet PQRS Narrative: Smoking Status Never smoker Blood Pressure 90/54 Pain Intensity 0 Scale Used Numeric (1 - 10) Home Medications: Ambulatory Orders Meloxicam 15 mg PO DAILY 01/25/14 Gabapentin [Neurontin] 400 mg PO BID-W/MEALS 07/16/24 Gabapentin [Neurontin] 800 mg PO HS 07/16/24 HYDROcodone/APAP 10-325MG [[place] 10-325] 1 tab PO QID PRN 07/16/24 Latanoprost [Latanoprost 0.005%] 1 drop BOTH EYES HS 07/16/24 Levothyroxine Sodium [Synthroid] 75 mcg PO DAILY 07/16/24 Losartan Potassium [Cozaar] 100 mg PO DAILY 07/16/24 Metoprolol Succinate (ER) [Toprol Xl] 25 mg PO DAILY 07/16/24 Omeprazole [PriLOSEC] 20 mg PO DAILY 07/16/24 Patient Own Pump 0 bag 07/16/24 amLODIPine [Norvasc] 10 mg PO DAILY 07/16/24 traZODone HCL [Desyrel] 200 mg PO HS 07/16/24
--- NOTE | 2024-07-16 19:11 | P.PCN ---
Date of Procedure: 07/16/24 Description of Procedure: OPERATION: Intrathecal pain pump analysis, programming and reprogramming. PREOPERATIVE DIAGNOSES: Opioid overdose secondary to intrathecal access opioid delivery. POSTOPERATIVE DIAGNOSES: Same as preoperative diagnosis. ANESTHESIA: None. CONDITION: Stable. Description of the procedure; Intrathecal pain pump analysed ,it showed patient currently had reservoir v olume[39.4] mL. The patient is receiving medication morphine sulfate 25 mg/ ml. Patient receiving daily dose of morphine sulfate 4.002 mg/day(0.167mg/hr) The location of the pump ( Left abdomen ) . The new setting of the pump is following: The concentration of morphine sulfate [25 ] mg /ml. The patient will continue to see the daily dose morphine sulfate [1.201 ] mg/day(0.050mg/hr)
[2024-07-16] MEDS ORDERED: ACETAMINOPHEN TAB 325 MG TAB PO PRN (19:17)
[2024-07-16] MEDS ORDERED: NALOXONE 0.4 MG/ML 1 ML VIAL IV PRN (19:17)
[2024-07-16] MEDS ORDERED: ONDANSETRON 4 MG/2 ML VIAL IVP PRN (19:17)
[2024-07-16] MEDS: SODIUM CHLORIDE 0.9% 1,000 ML IV SCH (19:47)
[2024-07-16 21:33] LABS: Appearance,Urine Clear (Clear); Bilirubin,Urine Negative (Negative); Blood,Urine Negative (Negative); Color,Urine Colorless; Glucose,Urine (UA) Negative (Negative); Ketones,Urine Negative (Negative); Leukocyte Esterase,Urine Moderate (Negative); Mucus,Urine Rare /hpf; Nitrite,Urine Negative (Negative); PH, Urine 5.5 (5.0-8.0); Protein,Urine Trace (Negative); RBC,Urine 3 /hpf (0-5); Specific Gravity,Urine >1.050 (1.001-1.035); Squamous Epithelial Cell,Urine <1 /hpf (0-4); Urobilinogen,Urine <2.0 mg/dL (<2.0); WBC,Urine 11 /hpf (0-5)
[2024-07-17 07:27] LABS: Basophils % (A) 0 %; Eosinophils # (A) 0.1 k/uL (0-0.7); Eosinophils % (A) 1 %; HCT 35.3 % (34.0-46.0); HGB 11.5 gm/dL (11.4-16.0); Lymphocytes # (A) 1.1 k/uL (1.0-4.8); Lymphocytes % (A) 9 %; MCH 30.6 pg (25.0-35.0); MCHC 32.6 g/dL (31.0-37.0); Mean Platelet Volume 7.2; Monocytes # (A) 0.6 k/uL (0-1.0); Monocytes % (A) 5 %; Neutrophils # (A) 10.5 k/uL (1.3-7.7); Neutrophils % (A) 84 %; Platelet Count 220 k/uL (150-450); RBC 3.75 m/uL (3.80-5.40); RDW 13.4 % (11.5-15.5); WBC 12.4 k/uL (3.8-10.6)
[2024-07-17 07:39] LABS: ALT 18 U/L (4-34); AST 30 U/L (14-36); African American GFR (CKD) >90 (>60 ml/min/1.73 sqM); Albumin 3.5 g/dL (3.5-5.0); Alkaline Phosphatase 39 U/L (38-126); Anion Gap 8 mmol/L; Blood Urea Nitrogen 15 mg/dL (7-17); Calcium 9.3 mg/dL (8.4-10.2); Carbon Dioxide 24 mmol/L (22-30); Chloride 102 mmol/L (98-107); Glucose 107 mg/dL (74-99); Non-African American GFR(CKD) >90 (>60 ml/min/1.73 sqM); Potassium 4.8 mmol/L (3.5-5.1); Sodium 134 mmol/L (137-145); Total Bilirubin 0.6 mg/dL (0.2-1.3); Total Protein 5.8 g/dL (6.3-8.2)
[2024-07-17 07:53] VITALS: RESP 16; TEMP 99.3
[2024-07-17] MEDS: LEVOTHYROXINE 75 MCG TAB PO SCH (09:21)
[2024-07-17] MEDS: MELOXICAM 7.5 MG TAB PO SCH (09:21)
[2024-07-17] MEDS: LOSARTAN 50 MG TAB PO SCH (09:22)
[2024-07-17] MEDS: METOPROLOL SUCCINATE (ER) 25 MG TAB.ER.24H PO SCH (09:22)
[2024-07-17] MEDS: GABAPENTIN 400 MG CAP PO SCH (09:55)
[2024-07-17] MEDS: PANTOPRAZOLE 40 MG TABLET PO SCH (09:55)
[2024-07-17 12:15] VITALS: BP 105/62; PULSE 86
[2024-07-17] MEDS: FUROSEMIDE 10 MG/ML 4 ML VIAL IV STA (12:45)
--- NOTE | 2024-07-17 13:14 | P.DS ---
Providers Date of admission: 07/16/24 19:20 Expected date of discharge: 07/17/24 Attending physician: Justino Farah MD Consults: 07/16/24 18:58 Consult Physician Routine Consulting Provider: Bhargav Diaz Consult Reason/Comments: pain pump adjustment Do you want consulting provider notified?: Already Contacted Primary care physician: Gregory Bradley [facility] Hospital Course: Patient is a 74-year-old female with history of GERD, hypertension, chronic back issue presented to the ED complaining of hypotension, lightheadedness, dizziness that started yesterday. Patient recently had an intrathecal morphine pump initiated about 5 days ago for her chronic back pain. Patient started noticing her symptoms yesterday which made the patient to come to the ED for evaluation. Patient denied other symptoms during initial presentation. Chest x-ray in the ER showed no acute cardiopulmonary disease. EKG showed sinus bradycardia with first-degree AV block with a rate of [address] showed no acute intracranial hemorrhage or midline shift. CT of the abdomen pelvis showed no significant acute finding. The CT did show biliary dilatation. Radiologist recommended nonemergent MRCP/ERCP follow-up. Repeat chest x-ray showed new bilateral mild to moderate interstitial edema. Admission vitals were temperature 99.3, pulse rate 86, respiratory rate 16, blood pressure 105/62, sat urating at 93% on room air. Admission labs include WBC 12.4, hemoglobin 11.5, hematocrit 35.3, platelets 220, sodium 134, potassium 4.8, chloride 102, carbon dioxide 24, BUN 15, creatinine 0.54, glucose 107. Pain management was consulted and after analysis of the pump, the medication delivery was decreased from 4.002 mg in 24 hours to 1.201 mg in 24 hours. Patient was seen on 07/17/2024 with no a cute complaints at this time. Patient is stable to be discharged back home. Home losartan was decreased from 100 mg daily to 50 mg daily. Patient is encouraged to follow-up with neurologist Dr. Olmstead and PCP Dr. Huerta. Discharge physical exam findings: GENERAL: This is a 74-year-old in no apparent distress at the time of examination. Pleasant and cooperative. HEENT: Head is atraumatic, normocephalic. Pupils are equal, round, and reactive to light. Sclerae anicteric. Conjunctivae are clear. Mucus membranes of the mouth are moist. Neck is supple. RESPIRATORY: Clear to auscultation. No wheezes, rales, or rhonchi. No use of accessory muscles. Patient maintaining oxygen saturation greater than 92%. No chest wall tenderness is noted on palpation or with deep breathing. CARDIOVASCULAR: Regular rate and rhythm. S1 and S2 noted. No systolic or diastolic murmur auscultated. No JVD noted. No S3 or S4 noted. GASTROINTESTINAL: No distention noted. Abdomen soft and round. Normal active bowel sounds auscultated x 4 quadrants. No pain or tenderness noted upon palpation. INTEGUMENTARY: No cyanosis. No jaundice. No rashes noted. No cellulitis noted. EXTREMITIES: 2+ peripheral pulses. No evidence of peripheral edema. No calf tenderness noted. NEUROLOGIC: Cranial nerves II-XII intact. PSYCHIATRIC: Awake, alert. Appropriate affect. Intact judgement and insight. Assessment: Opioid overdose secondary to intrathecal morphine pump Pertinent Studies: Chest x-ray in the ER showed no acute cardiopulmonary disease. EKG showed sinus bradycardia with first-degree AV block with a rate of [address] showed no acute intracranial hemorrhage or midline shift. CT of the abdomen pelvis showed no significant acute finding. The CT did show biliary dilatation. Radiologist recommended nonemergent MRCP/ERCP follow-up. Repeat chest x-ray showed new bilateral mild to moderate interstitial edema. Patient Condition at Discharge: Stable Plan - Discharge Summary Discharge Rx Participant: Yes New Discharge Prescriptions: New Losartan [Cozaar] 50 mg PO DAILY 30 Days #30 tab Continue Meloxicam 15 mg PO DAILY traZODone HCL [Desyrel] 200 mg PO HS Omeprazole [PriLOSEC] 20 mg PO DAILY amLODIPine [Norvasc] 10 mg PO DAILY Metoprolol Succinate (ER) [Toprol XL] 25 mg PO DAILY Latanoprost [Latanoprost 0.005%] 1 drop BOTH EYES HS Patient Own Pump 0 bag HYDROcodone/APAP 10-325MG [[place] 10-325] 1 tab PO QID PRN PRN Reason: Pain Levothyroxine Sodium [Synthroid] 75 mcg PO DAILY Gabapentin [Neurontin] 400 mg PO BID-W/MEALS Gabapentin [Neurontin] 800 mg PO HS Discontinued Losartan Potassium [Cozaar] 100 mg PO DAILY Discharge Medication List Meloxicam 15 mg PO DAILY 01/25/14 [History] Gabapentin [Neurontin] 400 mg PO BID-W/MEALS 07/16/24 [History] Gabapentin [Neurontin] 800 mg PO HS 07/16/24 [History] HYDROcodone/APAP 10-325MG [[place] 10-325] 1 tab PO QID PRN 07/16/24 [History] Latanoprost [Latanoprost 0.005%] 1 drop BOTH EYES HS 07/16/24 [History] Levothyroxine Sodium [Synthroid] 75 mcg PO DAILY 07/16/24 [History] Metoprolol Succinate (ER) [Toprol XL] 25 mg PO DAILY 07/16/24 [History] Omeprazole [PriLOSEC] 20 mg PO DAILY 07/16/24 [History] Patient Own Pump 0 bag 07/16/24 [History] amLODIPine [Norvasc] 10 mg PO DAILY 07/16/24 [History] traZODone HCL [Desyrel] 200 mg PO HS 07/16/24 [History] Losartan [Cozaar] 50 mg PO DAILY 30 Days #30 tab 07/17/24 [Rx] Follow up Appointment(s)/Referral(s): Gregory Huerta MD [Primary Care Provider] - 1-2 days Kristie Olmstead MD [Medical Doctor] - 3 Days
--- NOTE | 2024-07-17 13:20 | P.HPIM ---
History of Present Illness H&P Date: 07/17/24 Chief Complaint: Accidental opiate overdose Patient is a 74-year-old female with history of GERD, hypertension, chronic back issue presented to the ED complaining of hypotension, lightheadedness, dizziness that started yesterday. Patient recently had an intrathecal morphine pump initiated about 5 days ago for her chronic back pain. Patient started noticing her symptoms yesterday which made the patient to come to the ED for evaluation. Patient denied other symptoms during initial presentation. Patient denied fever, chills, chest pain, shortness of breath, nausea, vomiting, belly pain, diarrhea/constipation, hematochezia/melena. Chest x-ray in the ER showed no acu te cardiopulmonary disease. EKG showed sinus bradycardia with first-degree AV block with a rate of [address] showed no acute intracranial hemorrhage or midline shift. CT of the abdomen pelvis showed no significant acute finding. The CT did show biliary dilatation. Radiologist recommended nonemergent MRCP/ERCP follow-up. Repeat chest x-ray showed new bilateral mild to moderate interstitial edema. Admission vitals were temperature 99.3, pulse rate 86, respiratory rate 16, blood pressure 105/62, saturating at 93% on room air. Admission labs include WBC 12.4, hemoglobin 11.5, hematocrit 35.3, platelets 220, sodium 134, potassium 4.8, chloride 102, carbon dioxide 24, BUN 15, creati nine 0.54, glucose 107. Review of systems: Pertinent positives and negatives as discussed in HPI, a complete review of systems was performed and all other systems are negative. PMH: GERD, hypertension PSH: Back surgery FMH: No pertinent family history Allergies: Cephalexin, penicillins, sulfa drugs Social history: Tobacco: Former smoker Alcohol: None reported Recreational drugs: None reported Travel: No travel history Sick contacts: No sick contacts Physical examination: Vital signs reviewed General: nontoxic, no distress, appears at stated age Derm: warm, dry, intact Head: atraumatic, normocephalic, symmetric Eyes: EOMI, anicteric sclera Mouth: no lip lesion, mucus membranes moist Cardiovascular: S1 S2 reg, no murmur Lungs: CTA bilateral, no rhonchi, no rales, no accessory muscle use Abdominal: soft, non-tender to palpation, intrathecal morphine pump in the left lower quadrant Extremities: No cyanosis, clubbing, or pedal edema. Neuro: Alert, Oriented, Gross neurological examination did not reveal any focal deficits. Psych: well appearing, appropriate affect Assessment/Plan: Patient is a 74-year-old female with history of GERD, hypertension, chronic back issue presented to the ED complaining of hypotension, lightheadedness, dizziness that started yesterday. Patient recently had an intrathecal morphine pump initiated about 5 days ago for her chronic back pain. Patient will be admitted to inpatient medicine service. Active: #. Opioid overdose secondary to intrathecal morphine pump Pain management consulted Pain management adjusted medication delivery from 4.002 mg in 24 hours to 1.201 mg in 24 hours. The patient is admitted with an anticipated less than 2 midnight stay for evaluation of opioid overdose secondary to intrathecal morphine pump CODE STATUS: Full code Discussed with: Patient Anticipated discharge place: Home Past Medical History Past Medical History: GERD/Reflux, Hypertension, Osteoarthritis (OA) Additional Past Medical History / Comment(s): Degenerative disc disease History of Any Multi-Drug Resistant Organisms: None Reported Past Surgical History: Adenoidectomy, Appendectomy, Back Surgery, Breast Surgery, Cholecystectomy, Joint Replacement, Orthopedic Surgery, Tonsillectomy Additional Past Surgical History / Comment(s): ARTHROSCOPIC KNEE/TOTAL LEFT KNEE, TOTAL RIGHT KNEE Past Anesthesia/Blood Transfusion Reactions: No Reported Reaction Past Psychological History: No Psychological Hx Reported Smoking Status: Former smoker Past Alcohol Use History: None Reported Past Drug Use History: None Reported - Past Family History Father Family Medical History: Renal Disease Mother Family Medical History: Myocardial Infarction ([place]) Medications and Allergies Home Medications Medication Instructions Recorded Confirmed Type Meloxicam 15 mg PO DAILY 01/25/14 07/16/24 History Gabapentin [Neurontin] 400 mg PO BID-W/MEALS 07/16/24 07/16/24 History Gabapentin [Neurontin] 800 mg PO HS 07/16/24 07/16/24 History HYDROcodone/APAP 10-325MG [[place] 1 tab PO QID PRN 07/16/24 07/16/24 History 10-325] Latanoprost [Latanoprost 0.005%] 1 drop BOTH EYES HS 07/16/24 07/16/24 History Levothyroxine Sodium [Synthroid] 75 mcg PO DAILY 07/16/24 07/16/24 History Metoprolol Succinate (ER) [Toprol 25 mg PO DAILY 07/16/24 07/16/24 History XL] Omeprazole [PriLOSEC] 20 mg PO DAILY 07/16/24 07/16/24 History Patient Own Pump 0 bag 07/16/24 History amLODIPine [Norvasc] 10 mg PO DAILY 07/16/24 07/16/24 History traZODone HCL [Desyrel] 200 mg PO HS 07/16/24 07/16/24 History Losartan [Cozaar] 50 mg PO DAILY 30 Days #30 tab 07/17/24 Rx Allergies Allergy/AdvReac Type Severity Reaction Status Date / Time cephalexin monohydrate Allergy Unknown Verified 07/16/24 20:48 [From Keflex] Childhood Penicillins Allergy Unknown Verified 07/16/24 20:48 Childhood Sulfa (Sulfonamide Allergy Unknown Verified 07/16/24 20:48 Antibiotics) Childhood Physical Exam Vitals: Vital Signs Temp Pulse Pulse Pulse Pulse Resp BP 07/17/24 09:58 16 07/17/24 07:43 99.3 F 100 16 07/17/24 03:57 99.6 F 100 18 07/16/24 23:56 98.2 F 89 18 07/16/24 20:00 88 07/16/24 18:58 93 20 145/86 07/16/24 18:15 93 105/65 07/16/24 17:54 56 L 14 83/56 07/16/24 17:18 63 07/16/24 17:14 62 07/16/24 17:10 55 L 07/16/24 16:30 62 14 90/54 07/16/24 15:24 99/61 07/16/24 15:06 56 L 14 89/58 07/16/24 14:38 97.3 F L 67 18 78/51 BP BP BP Pulse Ox 07/17/24 09:58 92 L 07/17/24 07:43 131/66 95 07/17/24 03:57 129/64 92 L 07/16/24 23:56 130/63 94 L 07/16/24 20:00 116/71 07/16/24 18:58 95 07/16/24 18:15 95 07/16/24 17:54 97 07/16/24 17:18 79/55 87 L 07/16/24 17:14 80/53 89 L 07/16/24 17:10 74/46 93 L 07/16/24 16:30 97 07/16/24 15:24 07/16/24 15:06 94 L 07/16/24 14:38 94 L Intake and Output 07/16/24 07/17/24 07/17/24 22:59 06:59 14:59 Intake Total 600 180 Output Total 350 600 Balance -350 600 -420 Intake: IV 600 Sodium Chloride 0.9% 1, 600 000 ml @ 75 mls/hr IV . [id number] [facility] Rx#:[id number] Oral 180 Output: Urine 350 600 Other: Voiding Method Toilet # Voids 2 Weight 72.575 kg 75.5 kg Results CBC & Chem 7: 07/17/24 06:53 07/17/24 06:53 Labs: Abnormal Lab Results - Last 24 Hours (Table) 07/16/24 07/16/24 07/17/24 Range/Units 15:49 21:02 06:53 WBC 12.4 H (3.8-10.6) k/uL RBC 3.75 L (3.80-5.40) m/uL Neutrophils # 10.5 H (1.3-7.7) k/uL Sodium 135 L (137-145) mmol/L BUN 21 H (7-17) mg/dL Glucose (74-99) mg/dL Total Protein 6.2 L (6.3-8.2) g/dL Ur Specific [place] >1.050 H (1.001-1.035) Urine Protein Trace H (Negative) Ur Leukocyte Esterase Moderate H (Negative) Urine WBC 11 H (0-5) /hpf Urine Mucus Rare H (None) /hpf 07/17/24 Range/Units 06:53 WBC (3.8-10.6) k/uL RBC (3.80-5.40) m/uL Neutrophils # (1.3-7.7) k/uL Sodium 134 L (137-145) mmol/L BUN (7-17) mg/dL Glucose 107 H (74-99) mg/dL Total Protein 5.8 L (6.3-8.2) g/dL Ur Specific [place] (1.001-1.035) Urine Protein (Negative) Ur Leukocyte Esterase (Negative) Urine WBC (0-5) /hpf Urine Mucus (None) /hpf Thrombosis Risk Factor Assmnt - Choose All That Apply Any of the Below Risk Factors Present?: Yes Each Factor Represents 1 point: Obesity (BMI >25) Each Risk Factor Represents 2 Points: Age 61-74 years Thrombosis Risk Factor Assessment Total Risk Factor Score: 3 Thrombosis Risk Factor Assessment Level: Moderate Risk
[2024-07-17] MEDS ORDERED: GABAPENTIN 400 MG CAP PO SCH ×2 (17:30→21:00)
[2024-07-17] MEDS ORDERED: traZODone HCL 100 MG TAB PO SCH (21:00)
[2024-07-17] MEDS ORDERED: LATANOPROST 0.005% OPHTH DROPS 2.5 ML BTL BOTH EYES SCH (21:00)
== END 2024-07-17 13:58 | disposition home or self-care (01) ==
LOC: EC 14:33 → 3SCARD 19:20
PROVIDERS: ADMIT Internal Medicine; ATTEND Internal Medicine
DX: T40.2X1A Poisoning by other opioids, accidental (unintentional), initial encounter (principal); G89.29 Other chronic pain; I44.0 Atrioventricular block, first degree; K21.9 Gastro-esophageal reflux disease without esophagitis; I10 Essential (primary) hypertension; M19.90 Unspecified osteoarthritis, unspecified site; Z87.891 Personal history of nicotine dependence; Z79.1 Long term (current) use of non-steroidal anti-inflammatories (NSAID); Z79.899 Other long term (current) drug therapy; Z79.890 Hormone replacement therapy; Z88.1 Allergy status to other antibiotic agents; Z88.0 Allergy status to penicillin; Z88.2 Allergy status to sulfonamides
CPT/HCPCS: 96375 ×2; 96361; 96374; 99291; 36415; 93005; 80053 ×2; 83605; 83735; 84484; 85025 ×2; 85610; 85730; 81001; 87636; 71045; 71046; 70450; 74177; 62368; G0378 ×2; J1940; J2310; J2405; Q9967

== ENCOUNTER 2025-01-21 10:50 | Emergency (ER) | payer MEDICARE ==
[2025-01-21 12:01] LABS: Basophils # (A) 0.06 10*3/uL (0.00-0.10); Basophils % (A) 0.7 %; Eosinophils # (A) 0.19 10*3/uL (0.04-0.35); Eosinophils % (A) 2.3 %; HCT 42.3 % (37.2-46.3); HGB 14.1 g/dL (12.0-15.0); Lymphocytes # (A) 1.30 10*3/uL (0.90-5.00); Lymphocytes % (A) 15.7 %; MCH 29.5 pg (27.0-32.0); MCHC 33.3 g/dL (32.0-37.0); MCV 88.5 fL (80.0-97.0); Monocytes # (A) 0.65 10*3/uL (0.20-1.00); Monocytes % (A) 7.9 %; Neutrophils # (A) 6.04 10*3/uL (1.80-7.70); Neutrophils % (A) 73.2 %; Platelet Count 206 10*3/uL (140-440); RBC 4.78 10*6/uL (4.10-5.20); RDW 13.2 % (11.5-14.5); WBC 8.26 10*3/uL (4.50-10.00)
[2025-01-21] MEDS: ONDANSETRON 4 MG/2 ML VIAL IVP STA ×2 (12:03→12:08)
[2025-01-21] MEDS: HYDROmorphone 0.5 MG/0.5 ML SYRINGE IVP STA (12:22)
[2025-01-21] MEDS: hydrALAZINE HCL 20 MG/ML 1 ML VIAL IVP STA (12:22)
[2025-01-21 12:30] LABS: ALT 18 U/L (4-34); AST 27 U/L (14-36); African American GFR (CKD) >90 (>60 ml/min/1.73 sqM); Albumin 4.4 g/dL (3.5-5.0); Alkaline Phosphatase 47 U/L (38-126); Anion Gap 9 mmol/L; Blood Urea Nitrogen 14 mg/dL (7-17); Calcium 10.0 mg/dL (8.4-10.2); Carbon Dioxide 29 mmol/L (22-30); Chloride 102 mmol/L (98-107); Glucose 103 mg/dL (74-99); Non-African American GFR(CKD) >90 (>60 ml/min/1.73 sqM); Potassium 4.6 mmol/L (3.5-5.1); Sodium 140 mmol/L (137-145); Total Protein 7.4 g/dL (6.3-8.2)
[2025-01-21 12:45] LABS: INR 1.0 (<1.2); Partial Thromboplastin Time 23.6 sec (22.0-30.0); Prothrombin Time 11.1 sec (10.0-12.5)
--- NOTE | 2025-01-21 13:37 | XR ---
EXAMINATION TYPE: XR chest 2V DATE OF EXAM: 01/21/2025 12:50 PM COMPARISON: Chest radiographs from 07/16/2024. CLINICAL INDICATION: Female, 75 years old with history of Chest Pain; [facility] TECHNIQUE: XR chest 2V Frontal and lateral views of the chest. FINDINGS: Lungs/Pleura: There is flattening of the diaphragm with increased lucency of the lungs. No evidence o f pneumothorax, pleural effusion or focal consolidation. Pulmonary vascularity: Unremarkable. Heart/mediastinum: Cardiomediastinal silhouette is unremarkable. Musculoskeletal: No acute osseous pathology. There is lower spine fixation hardware is present. Other findings: None IMPRESSION: 1. No acute cardiopulmonary disease process. 2. COPD changes. [facility], , 01/21/2025 1:34 PM
--- NOTE | 2025-01-21 14:02 | ED ---
General Adult HPI - General Chief complaint: Recheck/Abnormal Lab/Rx Stated complaint: high bp/nausea Time Seen by Provider: 01/21/25 11:00 Source: patient, RN notes reviewed, old records reviewed Mode of arrival: ambulatory Limitations: no limitations - History of Present Illness Initial comments: This is a 75-year-old female who presents to the emergency department complaining of her blood pressure being high. Patient denies headache patient denies any blurred vision. Patient has chest pain palpitation difficulty breathing shortness of breath. Patient states she took twice is much of her blood pressure med this morning and it still is elevated. Patient denies any symptoms. - Related Data Home Medications Medication Instructions Recorded Confirmed Meloxicam 15 mg PO DAILY 01/25/14 07/16/24 Gabapentin [Neurontin] 400 mg PO BID-W/MEALS 07/16/24 07/16/24 Gabapentin [Neurontin] 800 mg PO HS 07/16/24 07/16/24 HYDROcodone/APAP 10-325MG [[place] 1 tab PO QID PRN 07/16/24 07/16/24 10-325] Latanoprost [Latanoprost 0.005%] 1 drop BOTH EYES HS 07/16/24 07/16/24 Levothyroxine Sodium [Synthroid] 75 mcg PO DAILY 07/16/24 07/16/24 Metoprolol Succinate (ER) [Toprol 25 mg PO DAILY 07/16/24 07/16/24 XL] Omeprazole [PriLOSEC] 20 mg PO DAILY 07/16/24 07/16/24 Patient Own Pump 0 bag 07/16/24 amLODIPine [Norvasc] 10 mg PO DAILY 07/16/24 07/16/24 traZODone HCL [Desyrel] 200 mg PO HS 07/16/24 07/16/24 Previous Rx's Medication Instructions Recorded Losartan [Cozaar] 50 mg PO DAILY 30 Days #30 tab 07/17/24 Allergies Allergy/AdvReac Type Severity Reaction Status Date / Time cephalexin monohydrate Allergy Unknown Verified 01/21/25 11:01 [From Keflex] Childhood Penicillins Allergy Unknown Verified 01/21/25 11:01 Childhood Sulfa (Sulfonamide Allergy Unknown Verified 01/21/25 11:01 Antibiotics) Childhood Review of Systems ROS Statement: Those systems with pertinent positive or pertinent negative responses have been documented in the HPI. ROS Other: All systems not noted in ROS Statement are negative. Past Medical History Past Medical History: GERD/Reflux, Hypertension, Osteoarthritis (OA) Additional Past Medical History / Comment(s): Degenerative disc disease History of Any Multi-Drug Resistant Organisms: None Reported Past Surgical History: Adenoidectomy, Appendectomy, Back Surgery, Breast Surgery, Cholecystectomy, Joint Replacement, Orthopedic Surgery, Tonsillectomy Additional Past Surgical History / Comment(s): ARTHROSCOPIC KNEE/TOTAL LEFT KNEE, TOTAL RIGHT KNEE Past Anesthesia/Blood Transfusion Reactions: No Reported Reaction Past Psychological History: No Psychological Hx Reported Smoking Status: Former smoker Past Alcohol Use History: None Reported Past Drug Use History: None Reported - Past Family History Father Family Medical History: Renal Disease Mother Family Medical History: Myocardial Infarction ([place]) General Exam - General Exam Comments Initial Comments: GENERAL: Patient is well-developed and well-nourished. Patient is nontoxic and well- hydrated and is in no acute distress. ENT: Neck is soft and supple. No significant lymphadenopathy is noted. Oropharynx is clear. Moist mucous membranes. Neck has full range of motion without eliciting any pain. EYES: The sclera were anicteric and conjunctiva were pink and moist. Extraocular movements were intact and pupils were equal round and reactive to light. Eyelids were unremarkable. PULMONARY: Unlabored respirations. Good breath sounds bilaterally. No audible rales rhonchi or wheezing was noted. CARDIOVASCULAR: There is a regular rate and rhythm without any murmurs gallops or rubs. ABDOMEN: Soft and nontender with normal bowel sounds. SKIN: Skin is clear with no lesions or rashes and otherwise unremarkable. NEUROLOGIC: Patient is alert and oriented x3. Cranial nerves II through XII are grossly intact. Motor and sensory are also intact. Normal speech, volume and content. Symmetrical smile. MUSCULOSKELETAL: Normal extremities with adequate strength and full range of motion. LYMPHATICS: No significant lymphadenopathy is noted PSYCHIATRIC: Normal psychiatric evaluation. Limitations: no limitations Course Vital Signs 01/21/25 01/21/25 01/21/25 10:58 11:54 12:30 Temperature 98.3 F Pulse Rate 71 71 Respiratory 18 18 Rate Blood Pressure 193/107 181/101 175/102 O2 Sat by Pulse 98 99 Oximetry 01/21/25 13:30 Temperature Pulse Rate 73 Respiratory 20 Rate Blood Pressure 152/89 O2 Sat by Pulse 97 Oximetry Medical Decision Making - Medical Decision Making EKG is interpreted by myself. EKG shows a sinus rhythm at 62 bpm VT interval is 217 QRS is 88 QT interval is 4 2 QTc of 408. Patient's EKG shows no ST segment elevation or depression Was pt. sent in by a medical professional or institution (BRODIE Elam, DIAB[employer] SOLUTIONS SPECIALIST, urgent care, hospital, or care home...) When possible be specific @ -No Did you speak to anyone other than the patient for history (EMS, parent, family, police, friend...)? What history was obtained from this source @ -No Did you review nursing and triage notes (agree or disagree)? Why? @ -I reviewed and agree with nursing and triage notes Were old charts reviewed (outside hosp., previous admission, EMS record, old EKG, old radiological studies, urgent care reports/EKG's, care home records)? Report findings @ -No old charts were reviewed Differential Diagnosis? @ -Hypertension essential, hypertensive urgency, hypertensive emergency, this is not an all-inclusive list EKG interpreted by me (3pts min.). @ -As above X-rays interpreted by me (1pt min.). @ -None done CT interpreted by me (1pt min.). @ -None done U/S interpreted by me (1pt. min.). @ -None done What testing was considered but not performed or refused? (CT, X-rays, U/S, labs)? Why? @ -None What meds were considered but not given or refused? Why? @ -None Did you discuss the management of the patient with other professionals (professionals i.e. BRODIE Elam, DIAB[employer] SOLUT[employer] SPECIALIST, lab, RT, psych nurse, criminal justice social worker, tire buffer, teacher, information officer, case mgr)? Give summary @ -No Was smoking cessation discussed for >3mins.? @ -No Was critical care preformed (if so, how long)? @ -No Were there social determinants of health that impacted care today? How? (Homelessness, low income, unemployed, alcoholism, drug addiction, t ransportation, low edu. Level, literacy, decrease access to med. care, half-way, rehab)? @ -No Was there de-escalation of care discussed even if they declined (Discuss DNR or withdrawal of care, Hospice)? DNR status @ -No What co-morbidities impacted this encounter? (DM, HTN, Smoking, COPD, CAD, Cancer, CVA, ARF, Chemo, Hep., AIDS, mental health diagnosis, sleep apnea, morbid obesity)? @ -None Was patient admitted / discharged? Hospital course, mention meds given and route, prescriptions, significant lab abnormalities, going to OR and other pertinent info. @ -Patient was given hydralazine her blood pressure came down nicely. Patient remained asymptomatic throughout the ED stay. Patient will be instructed to follow-up with a primary medical care doctor and adjust medicines as needed Undiagnosed new problem with uncertain prognosis? @ -No Drug Therapy requiring intensive monitoring for toxicity (Heparin, Nitro, Insulin, Cardizem)? @ -No Were any procedures done? @ -No Diagnosis/symptom? @ -Hypertension urgency Acute, or Chronic, or Acute on Chronic? @ -Acute Uncomplicated (without systemic symptoms) or Complicated (systemic symptoms)? @ -Uncomplicated Side effects of treatment? @ -No Exacerbation, Progression, or Severe Exacerbation? @ -No Poses a threat to life or bodily function? How? (Chest pain, [place], [place], pneumonia, PE, COPD, DKA, ARF, appy, cholecystitis, CVA, Diverticulitis, Homicidal, Suicidal, threat to staff... and all critical care pts) @ -No - Lab Data Result diagrams: 01/21/25 11:54 01/21/25 11:54 Lab Results 01/21/25 01/21/25 01/21/25 Range/Units 11:54 11:54 11:54 WBC 8.26 (4.50-10.00) 10*3/uL RBC 4.78 (4.10-5.20) 10*6/uL Hgb 14.1 (12.0-15.0) g/dL Hct 42.3 (37.2-46.3) % MCV 88.5 (80.0-97.0) fL MCH 29.5 (27.0-32.0) pg MCHC 33.3 (32.0-37.0) g/dL Plt Count 206 (140-440) 10*3/uL MPV 8.8 L (9.5-12.2) fL Immature Gran % (Auto) 0.2 % Neutrophils % 73.2 % Lymphocytes % 15.7 % Monocytes % 7.9 % Eosinophils % 2.3 % Basophils % 0.7 % Immature Gran # 0.02 (0.00-0.04) 10*3/uL Neutrophils # 6.04 (1.80-7.70) 10*3/uL Lymphocytes # 1.30 (0.90-5.00) 10*3/uL Monocytes # 0.65 (0.20-1.00) 10*3/uL Eosinophils # 0.19 (0.04-0.35) 10*3/uL Basophils # 0.06 (0.00-0.10) 10*3/uL PT (10.0-12.5) sec INR (<1.2) APTT (22.0-30.0) sec Sodium 140 (137-145) mmol/L Potassium 4.6 (3.5-5.1) mmol/L Chloride 102 (98-107) mmol/L Carbon Dioxide 29 (22-30) mmol/L Anion Gap 9 mmol/L BUN 14 (7-17) mg/dL Creatinine 0.55 (0.52-1.04) mg/dL Est GFR (CKD-EPI)AfAm >90 (>60 ml/min/1.73 sqM) Est GFR (CKD-EPI)NonAf >90 (>60 ml/min/1.73 sqM) Glucose 103 H (74-99) mg/dL Calcium 10.0 (8.4-10.2) mg/dL Magnesium 1.7 (1.6-2.3) mg/dL Total Bilirubin 0.4 (0.2-1.3) mg/dL AST 27 (14-36) U/L ALT 18 (4-34) U/L Alkaline Phosphatase 47 (38-126) U/L Troponin I (0.000-0.034) ng/mL Total Protein 7.4 (6.3-8.2) g/dL Albumin 4.4 (3.5-5.0) g/dL 01/21/25 01/21/25 Range/Units 12:19 12:19 WBC (4.50-10.00) 10*3/uL RBC (4.10-5.20) 10*6/uL Hgb (12.0-15.0) g/dL Hct (37.2-46.3) % MCV (80.0-97.0) fL MCH (27.0-32.0) pg MCHC (32.0-37.0) g/dL Plt Count (140-440) 10*3/uL MPV (9.5-12.2) fL Immature Gran % (Auto) % Neutrophils % % Lymphocytes % % Monocytes % % Eosinophils % % Basophils % % Immature Gran # (0.00-0.04) 10*3/uL Neutrophils # (1.80-7.70) 10*3/uL Lymphocytes # (0.90-5.00) 10*3/uL Monocytes # (0.20-1.00) 10*3/uL Eosinophils # (0.04-0.35) 10*3/uL Basophils # (0.00-0.10) 10*3/uL PT 11.1 (10.0-12.5) sec INR 1.0 (<1.2) APTT 23.6 (22.0-30.0) sec Sodium (137-145) mmol/L Potassium (3.5-5.1) mmol/L Chloride (98-107) mmol/L Carbon Dioxide (22-30) mmol/L Anion Gap mmol/L BUN (7-17) mg/dL Creatinine (0.52-1.04) mg/dL Est GFR (CKD-EPI)AfAm (>60 ml/min/1.73 sqM) Est GFR (CKD-EPI)NonAf (>60 ml/min/1.73 sqM) Glucose (74-99) mg/dL Calcium (8.4-10.2) mg/dL Magnesium (1.6-2.3) mg/dL Total Bilirubin (0.2-1.3) mg/dL AST (14-36) U/L ALT (4-34) U/L Alkaline Phosphatase (38-126) U/L Troponin I <0.012 (0.000-0.034) ng/mL Total Protein (6.3-8.2) g/dL Albumin (3.5-5.0) g/dL Disposition Clinical Impression: Hypertension Disposition: HOME SELF-CARE Condition: Good Instructions (If sedation given, give patient instructions): Hypertension (ED) Is patient prescribed a controlled substance at d/c from ED?: No Referrals: Gregory Huerta MD [Primary Care Provider] - 1-2 days Time of Disposition: 14:02
[2025-01-21 14:10] VITALS: PULSE 73
[2025-01-21 14:22] VITALS: BP 140/86; RESP 18; TEMP 98.1
== END 2025-01-21 14:22 | disposition home or self-care (01) ==
LOC: EC 10:50
DX: I10 Essential (primary) hypertension (principal); Z87.891 Personal history of nicotine dependence; Z88.0 Allergy status to penicillin; Z88.2 Allergy status to sulfonamides; Z88.1 Allergy status to other antibiotic agents
CPT/HCPCS: 36415; 93005; 80053; 83735; 84484; 85025; 85610; 85730; 71046; 99284; 96374; 96375 ×2; J0360; J2405; J1171